=== PATIENT | female | born 1970 | race Caucasian/White ===

== ENCOUNTER 2017-05-19 13:50 | Inpatient (IN) ==
[2017-05-19 14:37] LABS: Bilirubin,Urine Negative (Negative); Blood,Urine Large (Negative); Clarity,Urine Turbid (Clear); Color,Urine Yellow (Yellow); Glucose,Urine (UA) >=1000 mg/dL (Normal); Ketones,Urine Negative (Negative); Leukocyte Esterase,Urine Large (Negative); Nitrite,Urine Positive (Negative); Protein,Urine Trace mg/dL (Neg-Trace); Specific Gravity,Urine 1.028 (1.010-1.025); Urobilinogen,Urine Normal (Normal)
[2017-05-19 14:39] LABS: Bacteria,Urine Many per hpf (None-Few); Hyaline Casts,Urine None Seen per lpf (None-Few); RBC,Urine 15-30 per hpf (0-3); Squamous Epithelial Cell,Urine Many per lpf (None-Few); WBC,Urine TNTC per hpf (0-3)
--- NOTE | 2017-05-19 14:57 | Emergency Department Note ---
Disposition Clinical Impression: CVA (cerebral vascular accident) Qualifiers: CVA mechanism: unspecified Qualified Code(s): I63.9 - Cerebral infarction, unspecified Disposition: Admitted As Inpatient Condition: Fair Referrals: Merced Mckeon MD [Primary Care Provider] - Forms: ED Satisfaction Letter Time of Disposition: 16:53 Neuro HPI - General Chief Complaint: ED Weakness Stated Complaint: Left leg/ankle unable to move Time Seen by Provider: 05/19/17 14:44 Source: patient Mode of arrival: ambulatory Limitations: no limitations Nursing Notes Reviewed: Yes Vital Signs Reviewed: Yes - History of Present Illness HPI Narrative: 46-year-old female who states she developed a left leg numbness and weakness on Thursday which is 3 days ago. She states it started about 7 AM on Thursday and she was seen at an outside facility was told she didn't have a stroke based on CT scan and sent home. Onset of Symptoms Date: 05/16/17 Onset of Symptoms Time: 07:00 Timing confirmed by: family member Location: left leg History of same: No Severity: severe Quality: weakness, numbness Symptoms Improving: No Improves with: none Worsens with: none Context: sudden onset On Anticoagulants: No Associated symptoms: Reports: denies other symptoms Treatments Prior to Arrival: none - Related Data Home Medications: Home Medications Medication Instructions Recorded Confirmed Albuterol Neb [Proventil Neb] 2.5 mg IH Q4HR 09/26/15 09/04/16 Albuterol Sulfate [Albuterol 1 puff IH DAILY 09/26/15 09/04/16 Inhaler] Lisinopril-HCTZ 10-12.5 [Prinzide 1 each PO BID 09/26/15 09/04/16 10-12.5] Metformin HCl [Glucophage] 1,000 mg PO BID 09/26/15 09/04/16 Sitagliptin Phos/Metformin HCl 1 each PO BID 09/26/15 09/04/16 [Janumet 50-1,000 mg Tablet] Previous Rx's Medication Instructions Recorded Meloxicam [Mobic] 7.5 mg PO DAILY #10 tablet 09/04/16 Allergies/Adverse Reactions: Allergies Allergy/AdvReac Type Severity Reaction Status Date / Time Penicillins [PCN] Allergy Swelling Verified 09/04/16 20:04 of Lip/Tongue/Throat All systems ED: reviewed and negative except as stated. Constitutional: Denies: fever, chills, weakness, weight change Eyes: Denies: eye pain, eye discharge, vision change ENT ED: Denies: ear pain, throat pain, dental pain, hearing loss, epistaxis, congestion, dysphagia Cardiovascular: Denies: chest pain, palpitations, dyspnea on exertion, edema, syncope Respiratory: Denies: cough, dyspnea, wheezes, hemoptysis, stridor Gastrointestinal: Denies: abdominal pain, nausea, vomiting, diarrhea, constipation, hematemesis, melena, hematochezia Genitourinary: Denies: dysuria, frequency, hematuria, discharge Musculoskeletal: Denies: back pain, neck pain, arthralgia, myalgia Integumentary: Denies: rash, abrasion, lesions Neurological: Reports: weakness. 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 - Social History Smoking Status: Former smoker Smokeless Tobacco Status: No Alcohol use: Reports: none Drug use: Reports: none Physical Exam - General Limitations: no limitations General appearance: alert, in no apparent distress - Head Head exam: atraumatic, normocephalic, normal inspection - Eye Eye exam: Present: normal appearance - ENT ENT exam: normal exam, normal oropharynx, mucous membranes moist - Neck Neck exam: Present: normal inspection, full ROM, trachea midline - Chest Chest inspection: Present: normal inspection, symmetric chest wall rise - Respiratory Respiratory exam: Present: normal lung sounds bilaterally - Cardiovascular Cardiovascular exam: Present: regular rate, normal rhythm, normal heart sounds - Abdominal Exam Abdominal exam: Present: soft, Non-Tender. Absent: tenderness, distention, guarding, rebound, rigidity - Extremities Exam Extremities exam: Present: normal inspection, full ROM. Absent: tenderness, pedal edema - Expanded Lower Extremity Exam Neurovascular/Tendon exam: Present: motor deficit, sensory deficit Gait: not tested/not observed - Back Exam Back exam: Present: normal inspection, full ROM. Absent: tenderness - Neurological Exam Neurological exam: Present: alert, oriented X3 - Psychiatric Psychiatric exam: Present: normal affect, normal mood - Skin Skin exam: Present: warm, dry, intact, normal color Course - Reevaluation(s) Reevaluation #1: Notified by nursing staff that the patient fell when she was getting into bed. She her sock slid and she slid to the floor with the assistance of her significant other. She denies injury. Evaluation no obvious injuries were noted. Time: 15:26 Reevaluation #2: 46-year-old female who had acute onset of left leg pain 7 AM 3 days ago. Patient was seen at an outside facility had a CT scan and was negative for acute findings and was sent home. Patient comes in with persistent left leg pain. CT scan does show evidence of possible stroke. Consultation obtained with neurology anticoagulation given per his instruction and patient will be admitted for further evaluation. Time: 16:53 - Consultations Consultation #1: Discussed with , recommends Plavix 7581 mg aspirin admit and stroke workup. Time: 16:52 Consultation #2: Discussed with Luis Garza, admit. Time: 16:59 Vital Signs Temperature 98.5 F 05/19/17 14:10 Pulse Rate 101 05/19/17 14:10 Respiratory Rate 16 05/19/17 14:10 Blood Pressure 136/78 05/19/17 14:10 O2 Sat by Pulse Oximetry 96 05/19/17 14:10 Temperature 98.7 F 05/19/17 14:53 Pulse Rate 90 05/19/17 16:25 Respiratory Rate 16 05/19/17 16:25 Blood Pressure 116/81 05/19/17 16:25 O2 Sat by Pulse Oximetry 92 05/19/17 16:25 Oxygen Delivery Oxygen Delivery Room Air Neuro Symptoms/Deficit - Lab Data Lab results reviewed: Yes I reviewed the patient's lab results. Result diagrams: 05/19/17 15:07 05/19/17 15:07 Lab Results 05/19/17 05/19/17 05/19/17 Range/Units 14:12 14:38 15:07 WBC 8.6 (4.3-11.1) K/mcL RBC 5.83 H (3.82-4.97) M/mcL Hgb 17.0 H (11.5-15.4) g/dL Hct 50.5 H (35.3-44.9) % MCV 86.6 (83.0-100.0) fL MCH 29.2 (28.0-33.3) pg MCHC 33.7 (31.6-35.5) g/dL RDW 13.2 (11.5-14.5) % Plt Count 167 (140-400) K/mcL MPV 11.4 (9.4-12.4) fL Immature Gran % 0.5 (0-4) % Seg Neutrophils % 60.3 % Lymphocytes % 30.5 % Monocytes % 6.4 % Eosinophils % 1.5 % Basophils % 0.8 % Neutrophils # 5.2 (1.6-8.9) K/mcL Lymphocytes # 2.6 (0.6-4.6) K/mcL Monocytes # 0.6 (0.0-1.3) K/mcL Eosinophils # 0.1 (0.0-0.6) K/mcL Basophils # 0.1 (0.0-0.2) K/mcL PT (9.4-12.1) Seconds INR APTT (26.0-36.0) Seconds Sodium (136-145) mEq/L Potassium (3.5-4.5) mEq/L Chloride (98-109) mEq/L Carbon Dioxide (19-29) mEq/L BUN (7-20) mg/dL Creatinine (0.57-1.11) mg/dL Est GFR ( Amer) (> 60) Est GFR (Non-Af Amer) (> 60) BUN/Creatinine Ratio (6-26) Glucose (70-99) mg/dL POC Glucose 268 H (58-89) Calculated Osmolality (280-300) Calcium (8.6-10.8) mg/dL Troponin I (0-0.03) ng/mL Urine Color Yellow (Yellow) Urine Clarity Turbid A (Clear) Urine pH 6.0 (5.0-8.0) pH Units Ur Specific [place] 1.028 H (1.010-1.025) Urine Protein Trace (Neg-Trace) mg/dL Urine Glucose (UA) >=1000 H (Normal) mg/dL Urine Ketones Negative (Negative) mg/dL Urine Blood Large H (Negative) Urine Nitrite Positive A (Negative) Urine Bilirubin Negative (Negative) Urine Urobilinogen Normal (Normal) mg/dL Ur Leukocyte Esterase Large H (Negative) Urine Microscopic RBC 15-30 H (0-3) per hpf Urine Microscopic WBC TNTC H (0-3) per hpf Ur Squamous Epith Cells Many H (None-Few) per lpf Urine Bacteria Many H (None-Few) per hpf Hyaline Casts None Seen (None-Few) per lpf Ur Culture Indicated? YES A (NO) 05/19/17 05/19/17 05/19/17 Range/Units 15:07 15:07 15:07 WBC (4.3-11.1) K/mcL RBC (3.82-4.97) M/mcL Hgb (11.5-15.4) g/dL Hct (35.3-44.9) % MCV (83.0-100.0) fL MCH (28.0-33.3) pg MCHC (31.6-35.5) g/dL RDW (11.5-14.5) % Plt Count (140-400) K/mcL MPV (9.4-12.4) fL Immature Gran % (0-4) % Seg Neutrophils % % Lymphocytes % % Monocytes % % Eosinophils % % Basophils % % Neutrophils # (1.6-8.9) K/mcL Lymphocytes # (0.6-4.6) K/mcL Monocytes # (0.0-1.3) K/mcL Eosinophils # (0.0-0.6) K/mcL Basophils # (0.0-0.2) K/mcL PT 12.6 H (9.4-12.1) Seconds INR 1.2 APTT 29.9 (26.0-36.0) Seconds Sodium 134 L (136-145) mEq/L Potassium 4.3 (3.5-4.5) mEq/L Chloride 98 (98-109) mEq/L Carbon Dioxide 28 (19-29) mEq/L BUN 8 (7-20) mg/dL Creatinine 0.77 (0.57-1.11) mg/dL Est GFR ( Amer) > 60 (> 60) Est GFR (Non-Af Amer) > 60 (> 60) BUN/Creatinine Ratio 10 (6-26) Glucose 285 H (70-99) mg/dL POC Glucose (58-89) Calculated Osmolality 287 (280-300) Calcium 10.5 (8.6-10.8) mg/dL Troponin I 0.01 (0-0.03) ng/mL Urine Color (Yellow) Urine Clarity (Clear) Urine pH (5.0-8.0) pH Units Ur Specific [place] (1.010-1.025) Urine Protein (Neg-Trace) mg/dL Urine Glucose (UA) (Normal) mg/dL Urine Ketones (Negative) mg/dL Urine Blood (Negative) Urine Nitrite (Negative) Urine Bilirubin (Negative) Urine Urobilinogen (Normal) mg/dL Ur Leukocyte Esterase (Negative) Urine Microscopic RBC (0-3) per hpf Urine Microscopic WBC (0-3) per hpf Ur Squamous Epith Cells (None-Few) per lpf Urine Bacteria (None-Few) per hpf Hyaline Casts (None-Few) per lpf Ur Culture Indicated? (NO) - Radiology Data Radiology results reviewed: Yes I reviewed the patient's radiology results. Chest X-Ray 05/19/17 14:12 IMPRESSION: No acute process. D/ / Hamzah Palafox MD / Hamzah Palafox MD Interpreting Provider: Hamzah Palafox MD Head CT 05/19/17 14:53 IMPRESSION: 1. Multifocal areas of low attenuation in the subcortical white matter of the frontal lobes bilaterally, right more than left. Findings may represent age-indeterminate infarctions. If there is concern for acute or subacute infarction, then further evaluation with MRI of the brain is recommended. D/ 05/19/2017 15:29:21 Poonam Graff MD / [email or web address] Interpreting Provider: Poonam Graff MD NIH Stroke Scale - Level of Consciousness LOC: Alert - LOC Questions LOC Questions: Answers both correctly - LOC Commands LOC Commands: Performs both correctly - Best Gaze Best Gaze: Normal - Visual Visual: No visual loss - Facial Palsy Facial Palsy: Normal - Motor Arms Motor Arm-Left: No drift for 10 seconds Motor Arm-Right: No drift for 10 seconds - Motor Legs Motor Leg-Left: No movement Motor Leg-Right: No drift for 5 seconds - Limb Ataxia Limb Ataxia: Absent of affected limb too weak to perform exam - Sensory Sensory: Mild to moderate loss, "not as sharp" - Best Language Best Language: No aphasia - Dysarthria Dysarthria: Normal - Extinction and Inattention Extinction and Inattention: Normal - NIHSS Total Score NIHSS Total Score: 5 TPA Checklist - Eligibilty for IV tPA 1. LKW equal to or less than 4.5 hours be before treatment: No - LKW: 3-4.5 hrs Add. Warnings/Precautions Patient/family understanding: The patient/family members have been counseled and understood the risk, benefit , and alternatives of treatment.
[2017-05-19 15:16] LABS: Basophils # 0.1 K/mcL (0.0-0.2); Basophils % 0.8 %; Eosinophils # 0.1 K/mcL (0.0-0.6); Eosinophils % 1.5 %; Hematocrit 50.5 % (35.3-44.9); Immature Granulocytes % 0.5 % (0-4); Lymphocytes # 2.6 K/mcL (0.6-4.6); Lymphocytes % 30.5 %; Mean Corpuscular HGB Conc 33.7 g/dL (31.6-35.5); Mean Corpuscular Hemoglobin 29.2 pg (28.0-33.3); Mean Corpuscular Volume 86.6 fL (83.0-100.0); Mean Platelet Volume 11.4 fL (9.4-12.4); Monocytes # 0.6 K/mcL (0.0-1.3); Monocytes % 6.4 %; Neutrophils # 5.2 K/mcL (1.6-8.9); Platelet Count 167 K/mcL (140-400); Red Blood Count 5.83 M/mcL (3.82-4.97); Red Cell Distribution Width 13.2 % (11.5-14.5); Segmented Neutrophils % 60.3 %
[2017-05-19 15:19] LABS: INR 1.2; Prothrombin Time 12.6 Seconds (9.4-12.1)
[2017-05-19 15:21] LABS: Activated Partial Thrombo Time 29.9 Seconds (26.0-36.0)
[2017-05-19 15:26] LABS: BUN/Creatinine Ratio 10 (6-26); Blood Urea Nitrogen 8 mg/dL (7-20); Calcium 10.5 mg/dL (8.6-10.8); Carbon Dioxide 28 mEq/L (19-29); Chloride 98 mEq/L (98-109); Glucose 285 mg/dL (70-99); Osmolality,Calculated 287 (280-300); Potassium 4.3 mEq/L (3.5-4.5); Sodium 134 mEq/L (136-145); eGFR For African Americans > 60 (> 60); eGFR For Non-African Americans > 60 (> 60)
[2017-05-19] MEDS ORDERED: Aspirin 81 MG TAB.CHEW PO STA (16:51)
[2017-05-19] MEDS ORDERED: D5% in Water 1,000 ML IVC PRN (22:25)
[2017-05-19] MEDS ORDERED: Dextrose Gel 15 GM PO PRN ×2 (22:25)
[2017-05-19] MEDS ORDERED: *HR* Dextrose 50 % in Water (Syg) 50 ML SYRINGE IVP PRN (22:25)
[2017-05-20] MEDS: Insulin LISPRO 300 UNITS/3 ML VIAL SQ SCH ×5 (00:07→21:15)
[2017-05-20] MEDS: Insulin DETEMIR 100 UNIT/ML X5UNITS SQ SCH ×2 (00:08→21:15)
--- NOTE | 2017-05-20 00:09 | Internal Med History&Physical ---
<Nikos Flores - Last Filed: 05/20/17 01:04> Date of Encounter: 05/20/17 Time of Encounter: 22:15 Assessment and Plan (1) CVA (cerebral vascular accident) Current visit: Yes Status: Acute Patient's symptoms of left leg weakness and numbness greater than 24 hours duration are consistent with a CVA. -CT scan of the head demonstrates the possibility of a stroke; areas suggestive of age indeterminant infarctions seen. -CTA of the head and neck. -Further evaluation with MRI without contrast. -Patient may need a carotid ultrasound in the future. -Regular assessment of patient's neurologic status. -Neurology consulted. -Echocardiogram. Qualifiers: CVA mechanism: unspecified Qualified Code(s): I63.9 - Cerebral infarction, unspecified (2) Left leg weakness Current visit: Yes Status: Acute Vision has 2/5 strength in the left lower extremity. -Patient is unable to move leg against gravity. -No movement at the ankle; Patient is able to move her left hip. -Patient does have moderate sensory loss; no loss of sharp versus dull sensation. -PTOT consult. (3) Diabetes Current visit: Yes Status: Acute Patient has a known history of diabetes mellitus. -Patient should be placed on diabetic diet. -Hemoglobin A1c. -Continue insulin. -Hold patient's home metformin until 48 hr after diagnostic imaging studies. -Monitor kidney function after testing. Qualifiers: Diabetes mellitus type: type 2 Qualified Code(s): E11.9 - Type 2 diabetes mellitus without complications; Z79.4 - [facility] (current) use of insulin; Z79.4 - [facility] (current) use of insulin; Z79.4 - dedicated intermodal truck driver (current) use of insulin; Z79.4 - [facility] (current) use of insulin (4) Hypertension Current visit: Yes Status: Acute Patient has a known history of hypertension. Patient normally takes lisinopril- HCTZ. -Resume home medications. Qualifiers: Qualified Code(s): I10 - Essential (primary) hypertension Internal Medicine - H&P: HPI Chief complaint: Left leg weakness Admitted From: Home History of present illness: Ms. Pacheco is a 46 year old female with past medical history of diabetes, hypertension, COPD, and depression who presented to the hospital with chief complaint of left leg numbness and weakness of 3 days duration. Patient states that on Thursday, at approximately 7 AM, she began to feel numbness and weakness in her left leg. She went to an outside facility, and was told that she did not have a stroke based on a CT scan later sent home. Patient denies ever having this before. Patient's symptoms have not changed in the last 3 days. The onset of patient's symptoms was very sudden. Patient states that she is unable to move her left ankle at all, and is barely able to bend her left knee. She is however, able to move her left leg at the hip. No movement against gravity, strength 2 out of 5 in the left lower extremity. Her numbness is described as a mild to moderate loss of sensation, with no loss of sharp sensation. She denies having any numbness or weakness in the left upper extremity. She has no facial droop or slurred speech. She denies any other neurologic deficits and anywhere besides her left leg. Head CT was performed in the ER, showing multifocal areas of low tension wishes and subcortical white matter of the frontal lobes bilaterally, more so on the right. She denies any sensory deficits outside of her left leg, dizziness, visual impairment, pain, or weakness outside of her left leg. Past Med Surg Social Fam HX - Past Medical History Medical history: COPD, diabetes, hypertension Psychiatric history: depression - Past Surgical History Surgical History: cholecystectomy - Social History Smoking Status: Former smoker Smokeless Tobacco Status: No Alcohol use: none Drug use: none Internal Medicine - H&P: Meds Lisinopril-HCTZ 10-12.5 [Prinzide 10-12.5] 1 each PO DAILY 09/26/15 [History] Metformin HCl [Glucophage] 1,000 mg PO BID 09/26/15 [History] Cholecalciferol (Vitamin D3) [Vitamin D] 2,000 unit PO DAILY 05/19/17 [History] Gabapentin [Neurontin] 400 mg PO QID 05/19/17 [History] Insulin Glargine,Hum.rec.anlog [Lantus Solostar] 35 unit SQ QPM 05/19/17 [ History] 3 Allergy/AdvReac Type Severity Reaction Status Date / Time Penicillins [PCN] Allergy Swelling Verified 09/04/16 20:04 of Lip/Tongue/Throat All Systems PM: A 10-system review of systems was performed and is negative for pertinent findings except as documented above in the HPI. - Constitutional Constitutional: no chills, no fever(s), no night sweats - EENT Eyes: no change in vision, no discharge, no pain, no photophobia Nose, mouth and throat: no dysphagia - Cardiovascular Cardiovascular ROS IM: no chest pain, no diaphoresis, no dyspnea, no lightheadedness, no palpitations, no syncope - Respiratory Respiratory: no cough, no dyspnea, no wheezing, no excessive phlegm production - Gastrointestinal Gastrointestinal: no abdominal pain, no nausea - Genitourinary Genitourinary: no change in urinary stream, no difficulty voiding - Musculoskeletal Musculoskeletal ROS IM: no numbness, no tingling - Integumentary Integumentary IM: no rash, no unusual bruising - Neurological Neurological ROS: focal weakness, weakness, no confusion, no convulsions, no headache(s), no loss of vision, no numbness, no paresthesias, no tingling, no tremor(s), no other visual disturbances - Psychiatric Psychiatric: no behavioral changes, no confusion, no visual hallucinations - Constitutional Vitals: Temp Pulse Resp BP Pulse Ox 98.0 F 77 16 135/72 94 05/19/17 23:09 05/19/17 23:09 05/19/17 23:09 05/19/17 23:09 05/19/17 23:09 General appearance: Present: A&O X 3, answers questions appropriately - Head Head exam: Present: atraumatic, normocephalic - Eye Eye exam: Present: PERRL, conjuntiva pink, sclera anicteric Pupils: Present: PERRL - Neck Neck exam general surgery: Present: supple, trachea midline. Absent: lymphadenopathy - Respiratory Respiratory exam: Present: CTAB. Absent: accessory muscle use, rales, rhonchi, wheezes - Cardiovascular Cardiovascular exam: Present: RRR, +S1, +S2. Absent: diastolic murmur, gallop, rubs, systolic murmur - Extremities Exam Extremities exam: Present: warm, radial pulses palpable and symmetrical. Absent : calf tenderness, cyanotic, pedal edema - Expanded Lower Extremities Exam Knee exam: Absent: full knee extension Lower Leg exam: Absent: full ROM - Neurological Exam Neurological exam: Present: CN II-XII intact, motor sensory deficit, oriented X3. Absent: no focal deficits, strengths equal and symetr throughout, pronater drift, facial droop, speech deficit Additional comments: 2/5 strength in left lower extremity - Expanded Neurological Exam Neuro motor strength exam: LLE: 2/1 (Unable to move left lower extremity against gravity.) - Skin Skin exam: Present: dry, intact Internal Med - H&P Results - Labs CBC & Chem 7: 05/19/17 15:07 05/19/17 15:07 <GilbertArthur Debbie - Last Filed: 05/20/17 05:47> Date of Encounter: 05/19/17 Assessment and Plan (1) COPD (chronic obstructive pulmonary disease) Current visit: Yes Status: Chronic stable, will do PRN nebs Qualifiers: COPD type: emphysema Emphysema type: other Qualified Code(s): J43.8 - Other emphysema Internal Medicine - H&P: HPI History of present illness: Ms. Pacheco is a 46 year old female Past Med Surg Social Fam HX - Additional Family History Additional family history: DM in both parents as well as CAD, no known history of stroke All Systems PM: A 10-system review of systems was performed and is negative for pertinent findings except as documented above in the HPI. 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 There is normal appearing flow in the right middle cerebral and anterior cerebral arteries. Right frontal lobe infarcts. The findings were sent to the Radiology Results Communication Center at 12:10 am on 05/20/2017to be communicated to a licensed caregiver. 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 There is normal appearing flow in the right middle cerebral and anterior cerebral arteries. Right frontal lobe infarcts. The findings were sent to the Radiology Results Communication Center at 12:10 am on 05/20/2017to be communicated to a licensed caregiver. D/ / Jamison Bullock MD / Jamison Bullock MD Interpreting Provider: Jamison Bullock MD - Diagnostic Studies CT scan - head Status: image reviewed by me Chest x-ray Status: image reviewed by me - Attending Attestation Correction, date of encounter was 05/19/17 and not 05/20/17 I personally interviewed and examined this patient and my medical decision- making was reviewed with the Resident Physician. I agree with the documented findings, disposition and treatment plan as described except to the extent set forth below. Pt presents with acute neuro deficit concerning for stroke and found to have findings on CT head that are concerning, will get MRI brain w/o contrast/CTA of head and neck, TTE with bubble study for PFO as well as neuro consult. Will use modified stroke protocol since she is past the first 24 hour window. Arthur Hunt MD, MPH Hospitalist
[2017-05-20] MEDS: Acetaminophen 325 MG TABLET PO PRN (04:50)
[2017-05-20] MEDS: Aspirin 81 MG TAB.CHEW PO SCH (08:24)
[2017-05-20] MEDS: Gabapentin 400 MG CAPSULE PO SCH ×4 (08:24→21:15)
[2017-05-20] MEDS: Cholecalciferol (D-3) 1,000 UNIT TABLET PO SCH (08:24)
--- NOTE | 2017-05-20 09:14 | Neurology - Consult Note ---
<Indio Woods - Last Filed: 05/20/17 15:46> Date of Encounter: 05/20/17 Time of Encounter: 08:20 Assessment and Plan (1) CVA (cerebral vascular accident) Current Visit: Yes Status: Acute Patient presented to [facility] after 2-3 days of neurologic symptoms starting with left leg weakness and advanced into right-sided numbness. Patient exam shows weakness on left side of her body as well as increased DTRs on right side. Head /neck CTA performed shows occlusion of the right internal carotid artery as well as right frontal lobe infarcts. MRI shows multiple acute and sub-acute infarcts in both cerebral hemisphere, the larger of the infarcts appear to be on the same side as her occluded carotid artery. This finding is certainly concerning for embolism as it appears she has been showered with emboli. Will obtain echocardiogram Continue patient on aspirin, Plavix, and atorvastatin Consider evaluation for any arrhythmias Patient appears stable at this time, will not start anticoagulation at this time , but will wait for further workup Recommend PT/OT Qualifiers: CVA mechanism: unspecified Qualified Code(s): I63.9 - Cerebral infarction, unspecified History of Present Illness Chief complaint: Neurologic symptoms HPI: Ms. Pacheco is a 46 year old female with prior medical history of COPD, diabetes, and hypertension who presented to [facility] due to development of neurologic symptoms. She states that on Thursday she developed some left leg weakness and had gone to [facility], after brief workup she was sent home. The following day she woke up with numbness on the right side of her body and continued left leg weakness. She denies having any difficulty with speech, facial droop, or headaches. She denies ever having a CVA prior. She states that since admission she has had some improvement is no longer feeling numbness on the right side of her body. CTAs performed the patient had/neck shows no clue to right internal carotid artery at its origin with partial reconstitution intracranially, likely representing development of collateral flow. Past Med Surg Social Fam HX - Past Medical History Medical history: COPD, diabetes, hypertension Psychiatric history: depression - Past Surgical History Surgical History: cholecystectomy - Social History Smoking Status: Former smoker Smokeless Tobacco Status: No Alcohol use: none Drug use: none Medications and Allergies Lisinopril-HCTZ 10-12.5 [Prinzide 10-12.5] 1 each PO DAILY 09/26/15 [History] Metformin HCl [Glucophage] 1,000 mg PO BID 09/26/15 [History] Cholecalciferol (Vitamin D3) [Vitamin D] 2,000 unit PO DAILY 05/19/17 [History] Gabapentin [Neurontin] 400 mg PO QID 05/19/17 [History] Insulin Glargine,Hum.rec.anlog [Lantus Solostar] 35 unit SQ QPM 05/19/17 [ History] 3 Allergy/AdvReac Type Severity Reaction Status Date / Time Penicillins [PCN] Allergy Swelling Verified 09/04/16 20:04 of Lip/Tongue/Throat Review of Systems: Gen: denies generalized weakness CV: Denies chest pain Resp: Denies shortness of breath Neuro: Denies headache, denies confusion, reports weakness in left lower extremity, denies numbness currently, reports previous right-sided numbness, denies tingling, denies vision changes Physical Examination - Vital Signs Vital Signs: Initial Vital Signs Temp Pulse Resp BP Pulse Ox 98.5 F 101 16 136/78 96 05/19/17 14:10 05/19/17 14:10 05/19/17 14:10 05/19/17 14:10 05/19/17 14:10 - Exam Exam: General: Cooperative, pleasant, no acute distress, alert and oriented 3, answers questions appropriately HEENT: Normocephalic, atraumatic, neck supple, trachea midline, Conjunctiva pink , sclera anicteric, EOMI, PERRL, oral mucosa moist, no orophargeal erythema or exudates Extremities: No calf tenderness, noncyanotic, no pedal edema appreciated, warm, lower extremity pulses palpable and symmetrical Neurological: Alert and oriented 3, no facial droop, no focal deficits, cranial nerves II through XII grossly intact bilaterally, finger to nose smooth and accurate, sensation to gross touch intact in upper and lower extremities bilaterally, strength 5/5 in upper extremities bilaterally, patient unable to dorsiflex toes in left foot, strength 4/5 in leg raising and left lower extremity, brisk DTRs noted in right lower extremity, normal DTR and left lower extremity and upper extremities Skin: Dry, intact, normal color Results - Laboratory Findings CBC and BMP: 05/19/17 15:07 05/19/17 15:07 Abnormal lab findings: Abnormal lab results RBC 5.83 M/mcL (3.82-4.97) H 05/19/17 15:07 Hgb 17.0 g/dL (11.5-15.4) H 05/19/17 15:07 Hct 50.5 % (35.3-44.9) H 05/19/17 15:07 PT 12.6 Seconds (9.4-12.1) H 05/19/17 15:07 Sodium 134 mEq/L (136-145) L 05/19/17 15:07 Glucose 285 mg/dL (70-99) H 05/19/17 15:07 POC Glucose 299 (58-89) H 05/19/17 20:25 Urine Clarity Turbid (Clear) A 05/19/17 14:12 Ur Specific Preston 1.028 (1.010-1.025) H 05/19/17 14:12 Urine Glucose (UA) >=1000 mg/dL (Normal) H 05/19/17 14:12 Urine Blood Large (Negative) H 05/19/17 14:12 Urine Nitrite Positive (Negative) A 05/19/17 14:12 Ur Leukocyte Esterase Large (Negative) H 05/19/17 14:12 Urine Microscopic RBC 15-30 per hpf (0-3) H 05/19/17 14:12 Urine Microscopic WBC TNTC per hpf (0-3) H 05/19/17 14:12 Ur Squamous Epith Cells Many per lpf (None-Few) H 05/19/17 14:12 Urine Bacteria Many per hpf (None-Few) H 05/19/17 14:12 Ur Culture Indicated? YES (NO) A 05/19/17 14:12 Consult Discharge Plan - Plan Referrals: Merced Mckeon MD [Primary Care Provider] - <Wilman Velázquez I - Last Filed: 05/20/17 17:03> Date of Encounter: 05/20/17 Assessment and Plan (1) CVA (cerebral vascular accident) Current Visit: Yes Status: Acute Patient was Seen and examined agreed with Dr. Woods documentation. Her presentation seems to be consistent with multiple subacute infarct. Likely been having in the last week or so her left lower activity weakness along with numbness and paresthesias of the right side seems to be consistent with these multiple embolic infarct that was noted on the CT the scan as well as on the MRI of her brain. CT angiogram also shows occlusion of the right carotid artery along with collaterals which is likely chronic in nature. Patient has multiple risk factors for stroke and certainly with carotid stenosis status at major risk factor regardless at this time. We will need to look for an embolic source. As her carotid is completely occluded she would not require any surgical intervention especially when they are evidence of collaterals. She will need an echocardiogram particularly to look for embolic source from the heart or perhaps she may need a BRIAN. At the same time the need to continue monitoring her for any atrial fibrillation at the moment no evidence of any A. fib but is desiccation might need to be anticoagulated. The to control her blood pressure and blood sugar and keep it is stable certainly we need to allow systolic blood pressure to be 140 and 170 range as decreasing the pressure too quick may cause worsening of her symptoms Currently she is on aspirin and Plavix along with the Lipitor suggested that we should continue. She will require rehabilitation as well. We will follow the patient with you Wilman Velázquez MD Qualifiers: CVA mechanism: unspecified Qualified Code(s): I63.9 - Cerebral infarction, unspecified History of Present Illness HPI: Ms. Pacheco is a 46 year old female All Systems: A 10-system review of systems was performed and is negative for pertinent findings except as documented above in the HPI. Physical Examination - Vital Signs Vital Signs: Initial Vital Signs Temp Pulse Resp BP Pulse Ox 98.5 F 101 16 136/78 96 05/19/17 14:10 05/19/17 14:10 05/19/17 14:10 05/19/17 14:10 05/19/17 14:10 Results - Laboratory Findings CBC and BMP: 05/19/17 15:07 05/19/17 15:07 Abnormal lab findings: Abnormal lab results RBC 5.83 M/mcL (3.82-4.97) H 05/19/17 15:07 Hgb 17.0 g/dL (11.5-15.4) H 05/19/17 15:07 Hct 50.5 % (35.3-44.9) H 05/19/17 15:07 PT 12.6 Seconds (9.4-12.1) H 05/19/17 15:07 Sodium 134 mEq/L (136-145) L 05/19/17 15:07 Glucose 285 mg/dL (70-99) H 05/19/17 15:07 POC Glucose 299 (58-89) H 05/19/17 20:25 Urine Clarity Turbid (Clear) A 05/19/17 14:12 Ur Specific Preston 1.028 (1.010-1.025) H 05/19/17 14:12 Urine Glucose (UA) >=1000 mg/dL (Normal) H 05/19/17 14:12 Urine Blood Large (Negative) H 05/19/17 14:12 Urine Nitrite Positive (Negative) A 05/19/17 14:12 Ur Leukocyte Esterase Large (Negative) H 05/19/17 14:12 Urine Microscopic RBC 15-30 per hpf (0-3) H 05/19/17 14:12 Urine Microscopic WBC TNTC per hpf (0-3) H 05/19/17 14:12 Ur Squamous Epith Cells Many per lpf (None-Few) H 05/19/17 14:12 Urine Bacteria Many per hpf (None-Few) H 05/19/17 14:12 Ur Culture Indicated? YES (NO) A 05/19/17 14:12
--- NOTE | 2017-05-20 16:29 | Internal Med Progress Note ---
Date of Encounter: 05/20/17 Time of Encounter: 16:26 - Assessment and plan (1) CVA (cerebral vascular accident) Current Visit: Yes Status: Acute Assessment and plan: Nevin Pacheco is 46-year-old female with past medical history COPD, diabetes and hypertension who presented to [facility] on 05/19/2017 with complaints of left arm numbness and tingling and inability to move left leg. She was found to have an acute CVA and was admitted for further workup and treatment. 1. CVA: presented with left arm numbness/tingling and inability to move left leg. Symptom onset was 3 days prior to admission. ASA given in ED. Head CT negative. Brain MRI with multiple areas of acute infarct in the frontal, parietal and occipital lobes bilaterally, concerning for an embolic source. Head /neck CTA with complete occlusion of Right ICA. No A. fib or arrhythmia noted on telemetry review. Cont ASA, plavix, statin. TTE pending. Neurology following. Cardiology consulted. Discussed with Dr. Velázquez and will need heparin drip if she goes into A. fib. 2. UTI: UA indicative of UTI. Allergy to penicillin. Start IV Cipro. Urine culture pending 3. HTN: per hx. BP controlled. No need for permissive hypertension as symptoms onset was 3 days prior to presentation. Continue home BP medications. Monitor BP and titrate PRN 4. Diabetes: per hx. control unknown. Holding home oral hypoglycemics. SSI. Monitor blood sugar and titrate PRN. Hgb A1c pending 5. COPD: per hx. with scant, scattered wheezing on 05/20 exam. Afebrile, no elevated white count, no increase in sputum production. No indication for respiratory ATB. Add duo nebs. 6. DVT prophylaxis: Heparin Qualifiers: CVA mechanism: unspecified Qualified Code(s): I63.9 - Cerebral infarction, unspecified (2) Abnormal urinalysis Current Visit: Yes Status: Acute (3) COPD (chronic obstructive pulmonary disease) Current Visit: Yes Status: Chronic Qualifiers: COPD type: emphysema Emphysema type: other Qualified Code(s): J43.8 - Other emphysema (4) Diabetes Current Visit: Yes Status: Acute Qualifiers: Diabetes mellitus type: type 2 Qualified Code(s): E11.9 - Type 2 diabetes mellitus without complications (5) DVT prophylaxis Current Visit: Yes Status: Acute (6) Hypertension Current Visit: Yes Status: Acute Qualifiers: Hypertension type: essential hypertension Qualified Code(s): I10 - Essential (primary) hypertension - Subjective Interval history: Seen and examined at bedside, patient is new to me. Information obtained from chart review and patient report. Agents that she is feeling a little better, still with some left arm numbness and tingling. She is now able to move her left leg a little bit. No previous history of CVA. Denies headache, no vision changes. No chest pain, no shortness of breath, no abdominal pain and nausea vomiting or diarrhea. - Constitutional Vitals: Temp Pulse Resp BP Pulse Ox 98.0 F 71 16 135/79 91 05/20/17 15:15 05/20/17 15:15 05/20/17 15:15 05/20/17 15:15 05/20/17 15:15 General appearance: Present: A&O X 3, answers questions appropriately - Head Head exam: Present: atraumatic, normocephalic - Eye Eye exam: Present: PERRL, conjuntiva pink, sclera anicteric Pupils: Present: PERRL - Neck Neck exam general surgery: Present: supple, trachea midline. Absent: lymphadenopathy - Respiratory Respiratory exam: Present: CTAB. Absent: accessory muscle use, rales, rhonchi, wheezes - Cardiovascular Cardiovascular exam: Present: RRR, +S1, +S2. Absent: diastolic murmur, gallop, rubs, systolic murmur - GI/Abdominal GI/Abdominal exam: Present: normal bowel sounds, soft, no peritoneal signs. Absent: distended, tenderness - Extremities Exam Extremities exam: Present: warm, radial pulses palpable and symmetrical. Absent : calf tenderness, cyanotic, pedal edema - Neurological Exam Neurological exam: Present: CN II-XII intact, oriented X3, no focal deficits. Absent: pronater drift, facial droop, speech deficit Additional comments: 0/5 strength to left leg. 5 out of 5 strength to all other extremities. No slurred speech, no facial droop. - Skin Skin exam: Present: dry, intact Internal Medicine: Result - Labs CBC & Chem 7: 05/19/17 15:07 05/19/17 15:07 - ABG Interpretation ABG results: PT/INR, D-dimer PT 12.6 Seconds (9.4-12.1) H 05/19/17 15:07 Consult Discharge Plan - Plan Referrals: Merced Mckeon MD [Primary Care Provider] -
[2017-05-20] MEDS: Ipratropium/Albuterol Neb 3 ML IH SCH ×2 (19:45→23:02)
--- NOTE | 2017-05-20 20:12 | Electrocardiograph Report ---
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
[2017-05-21] MEDS: Ipratropium/Albuterol Neb 3 ML IH SCH ×6 (03:11→23:02)
[2017-05-21 05:35] LABS: Hematocrit 47.6 % (35.3-44.9); Hemoglobin 15.8 g/dL (11.5-15.4); Mean Corpuscular HGB Conc 33.2 g/dL (31.6-35.5); Mean Corpuscular Hemoglobin 28.9 pg (28.0-33.3); Mean Platelet Volume 11.5 fL (9.4-12.4); Platelet Count 150 K/mcL (140-400); Red Blood Count 5.47 M/mcL (3.82-4.97); Red Cell Distribution Width 13.2 % (11.5-14.5)
[2017-05-21 05:55] LABS: Alanine Aminotransferase 58 Units/L (0-55); Albumin 3.3 g/dL (3.5-5.0); Albumin/Globulin Ratio 0.9 (1.1-2.2); Alkaline Phosphatase 59 Units/L (38-126); Aspartate Amino Transferase 50 Units/L (5-34); BUN/Creatinine Ratio 17 (6-26); Blood Urea Nitrogen 12 mg/dL (7-20); Calcium 9.6 mg/dL (8.6-10.8); Carbon Dioxide 28 mEq/L (19-29); Chloride 101 mEq/L (98-109); Chol/HDL Ratio 6.1 (0-4.9); Cholesterol 189 mg/dL (< 200); Globulin 3.7 g/dL (2.4-3.5); Glucose 193 mg/dL (70-99); HDL Cholesterol 31 mg/dL (40-59); LDL Cholesterol,Calculated 126 mg/dL (0-99); Osmolality,Calculated 291 (280-300); Potassium 3.9 mEq/L (3.5-4.5); Sodium 138 mEq/L (136-145); Triglycerides 158 mg/dL (< 150); eGFR For African Americans > 60 (> 60); eGFR For Non-African Americans > 60 (> 60)
[2017-05-21] MEDS: Insulin LISPRO 300 UNITS/3 ML VIAL SQ SCH ×4 (08:30→21:23)
[2017-05-21] MEDS: Aspirin 81 MG TAB.CHEW PO SCH (08:31)
[2017-05-21] MEDS: Cholecalciferol (D-3) 1,000 UNIT TABLET PO SCH (08:31)
[2017-05-21] MEDS: Gabapentin 400 MG CAPSULE PO SCH ×4 (08:31→21:22)
--- NOTE | 2017-05-21 09:59 | Cardiology Consult Note ---
<Jacob Martin - Last Filed: 05/21/17 11:26> Date of Encounter: 05/21/17 Time of Encounter: 11:27 Assessment and Plan (1) CVA (cerebral vascular accident) Current Visit: Yes Status: Acute MRI demonstrates multiple infarcts in the occipital, parietal, and frontal lobes. Likely embolic. Neurology following. MRA of the neck showed 100% occlusion of the right ICA. Noted to have larger infarct on right per neurology although CVA are bilateral. Telemetry review shows NSR to ST. No concerning arrhythmias seen. TTE shows preserved EF. No PFO. No thrombus. BRIAN recommended for further evaluation for embolic source. Risk, benefit, and indication discussed. She is considering. If BRIAN is negative a loop recorder is recommended to assess for atrial fibrillation. NPO after midnight for BRIAN. Started on asa and plavix. No indication seen for full anticoagulation at this time. Qualifiers: CVA mechanism: unspecified Qualified Code(s): I63.9 - Cerebral infarction, unspecified Discussion w patient/family: The assessment and plan as outlined above was discussed with the patient and/or family members who expressed understanding and agreement. All questions were answered. Thank you for involving us in the care of your patient. Please call with any questions. History of Present Illness Consult date: 05/21/17 Requesting physician: Arthur Hunt Consult reason: embolic CVA Chief complaint: Bilateral extremity weakness History of present illness: Ms. Pacheco is a 46 year old female with a history of DM, HTN, HLD, and tobacco use who presented with weakness in LLE and numbness in her RLE since last thursday. She is diagnosed with multiple cerebral infarcts on MRI. Cardiology consulted for evaluation of possible embolic source. She continues to have left sided weakness. She voices fear of falling due to weakness. She was given a walker and asked to only ambulate with assistance. Denies previous history of CVA. She denies chest pain or SOB. Admits to occasional palpitations that occur with panic attacks. Past Med Surg Social Fam HX - Past Medical History Medical history: COPD, diabetes, hyperlipidemia, hypertension Psychiatric history: depression - Past Surgical History Surgical History: cholecystectomy - Social History Smoking Status: Former smoker Smokeless Tobacco Status: No Alcohol use: none Drug use: none Medications and Allergies Lisinopril-HCTZ 10-12.5 [Prinzide 10-12.5] 1 each PO DAILY 09/26/15 [History] Metformin HCl [Glucophage] 1,000 mg PO BID 09/26/15 [History] Cholecalciferol (Vitamin D3) [Vitamin D] 2,000 unit PO DAILY 05/19/17 [History] Gabapentin [Neurontin] 400 mg PO QID 05/19/17 [History] Insulin Glargine,Hum.rec.anlog [Lantus Solostar] 35 unit SQ QPM 05/19/17 [ History] 3 Allergy/AdvReac Type Severity Reaction Status Date / Time Penicillins [PCN] Allergy Swelling Verified 09/04/16 20:04 of Lip/Tongue/Throat All Systems Review: A 10-system review of systems was performed and is negative for pertinent findings except as documented above in the HPI. Physical Examination Vital Signs, Last 4 Hours Temp Pulse Resp BP Pulse Ox 05/21/17 07:49 16 95 05/21/17 07:00 97.5 F L 73 16 127/87 95 General: Conversant, No Apparent Distress HEENT: Atraumatic, Normocephaly, Mucus Membranes Moist Neck: No JVD, Normal carotid pulses Cardiac: Reg Rate and Rhythm, Normal S1 and S2, No Murmur Lungs: Normal Breath Sounds, No Wheeze, Rales, Rhonchi Neuro: Alert and responsive, Other (Left sided weakness noted. ) Abdomen: Soft, Non-Tender Skin: No rashes noted on visualized skin Musculoskeletal: No Chest Wall Tenderness Extremities: No Clubbing, No Cyanosis, No Edema, Normal Pulses Results 05/21/17 04:24 05/21/17 04:24 Lab Results 05/21/17 05/21/17 04:24 04:24 WBC 7.3 Hgb 15.8 H Hct 47.6 H Plt Count 150 Sodium 138 Potassium 3.9 Chloride 101 Carbon Dioxide 28 BUN 12 Creatinine 0.69 Glucose 193 H Calcium 9.6 Total Bilirubin 1.0 AST 50 H ALT 58 H Alkaline Phosphatase 59 Chest X-Ray 05/19/17 14:12 IMPRESSION: No acute process. D/ / Hamzah Palafox MD / Hamzah Palafox MD Interpreting Provider: Hamzah Palafox MD Head CT 05/19/17 14:53 IMPRESSION: 1. Multifocal areas of low attenuation in the subcortical white matter of the frontal lobes bilaterally, right more than left. Findings may represent age-indeterminate infarctions. If there is concern for acute or subacute infarction, then further evaluation with MRI of the brain is recommended. D/ / 05/19/2017 15:29:21 Poonam Graff MD / [email or web address] Interpreting Provider: Poonam Graff MD Head CTA 05/19/17 22:22 IMPRESSION: Occluded right internal carotid artery at its origin and throughout its course in the neck with partial reconstitution intracranially likely from collateral retrograde flow from point hope ira Dickinson. There is normal appearing flow in the right middle cerebral and anterior cerebral arteries. Right frontal lobe infarcts. The findings were sent to the Radiology Results Communication Center at 12:10 am on 05/20/2017to be communicated to a licensed caregiver. D/ / Jamison Bullock MD / Jmaison Bullock MD Interpreting Provider: Jamison Bullock MD Neck CTA 05/19/17 22:22 IMPRESSION: Occluded right internal carotid artery at its origin and throughout its course in the neck with partial reconstitution intracranially likely from collateral retrograde flow from point hope ira [place]. There is normal appearing flow in the right middle cerebral and anterior cerebral arteries. Right frontal lobe infarcts. The findings were sent to the Radiology Results Communication Center at 12:10 am on 05/20/2017to be communicated to a licensed caregiver. D/ / Jamison Bullock MD / Jamison Bullock MD Interpreting Provider: Jamison Bullokc MD Brain MRI 05/20/17 09:16 IMPRESSION: Multiple areas of acute infarct involving the frontal lobes, parietal lobes, and occipital lobes bilaterally, involving multiple vascular territories. An embolic source should be considered. Mild chronic small vessel ischemic changes. There is mild enhancement in the posterior right frontal lesions, which suggests subacute areas of infarct. A follow-up MRI of the brain should be considered in 6-8 weeks. D/ / 05/20/2017 13:00:06 Griselda Butt MD / sadiq Interpreting Provider: Griselda Butt MD Echocardiogram 05/20/17 22:24 Impressions: Normal LV systolic function, LVEF 65-70%. Normal right ventricular size and function. No significant valvular dysfunction. No evidence of patent foramen ovale (PFO) with agitated saline contrast. - Imaging and Cardiology Echo: report reviewed - EKG Interpretation EKG results cardiology: personally reviewed Consult Discharge Plan - Plan Referrals: Merced Mckeon MD [Primary Care Provider] - <Alexis Pavon - Last Filed: 05/21/17 12:07> Date of Encounter: 05/21/17 - Attending Attestation I have personally performed a face to face evaluation on this patient. I have reviewed and agree with the care plan. History and Exam by me shows: MRI c/w CVA in multiple territories. Recommend workup for embolic source including BRIAN and LOOP recorder. Assessment and Plan Discussion w patient/family: The assessment and plan as outlined above was discussed with the patient and/or family members who expressed understanding and agreement. All questions were answered. Thank you for involving us in the care of your patient. Please call with any questions. History of Present Illness History of present illness: Ms. Pacheco is a 46 year old female All Systems Review: A 10-system review of systems was performed and is negative for pertinent findings except as documented above in the HPI. Physical Examination Vital Signs, Last 4 Hours Temp Pulse Resp BP Pulse Ox 05/21/17 11:00 98.1 F 84 16 123/80 94 Results 05/21/17 04:24 05/21/17 04:24 Lab Results 05/21/17 05/21/17 04:24 04:24 WBC 7.3 Hgb 15.8 H Hct 47.6 H Plt Count 150 Sodium 138 Potassium 3.9 Chloride 101 Carbon Dioxide 28 BUN 12 Creatinine 0.69 Glucose 193 H Calcium 9.6 Total Bilirubin 1.0 AST 50 H ALT 58 H Alkaline Phosphatase 59
--- NOTE | 2017-05-21 10:11 | Neurology Progress Note ---
<Indio Woods - Last Filed: 05/21/17 10:18> Date of Encounter: 05/21/17 Time of Encounter: 08:15 Assessment and Plan (1) CVA (cerebral vascular accident) Current Visit: Yes Status: Acute Patient presented to [place] after 2-3 days of neurologic symptoms starting with left leg weakness and advanced into right-sided numbness. Patient exam shows weakness on left side of her body as well as increased DTRs on right side. Head /neck CTA performed shows occlusion of the right internal carotid artery as well as right frontal lobe infarcts. No intracranial vascular abnormalities seen in CTA of the patient head. MRI shows multiple acute and sub-acute infarcts in both cerebral hemisphere, the larger of the infarcts appear to be on the same side as her occluded carotid artery. The larger of the infarcts pain on the side of her occluded carotid. This finding is certainly concerning for embolism as it appears she has been showered with emboli. Mild improvement patient strength seen since yesterday, so reports continued weakness. Initial TTE negative for acute findings Consider BRIAN for better visualization Continue patient on aspirin, Plavix, and atorvastatin Consider evaluation for any arrhythmias Patient appears stable at this time, will not start anticoagulation unless evidence of atrial fibrillation or thrombus seen Recommend PT/OT Qualifiers: CVA mechanism: unspecified Qualified Code(s): I63.9 - Cerebral infarction, unspecified Subjective Principal diagnosis: CVA Interval history: Patient seen and examined this morning she is sitting comfortably having just eaten breakfast on the phone. She states she has had some improvement in her strength, although still reports continued weakness. Objective - Constitutional Vitals: Temp Pulse Resp BP Pulse Ox 97.5 F L 73 16 127/87 95 05/21/17 07:00 05/21/17 07:00 05/21/17 07:49 05/21/17 07:00 05/21/17 07:49 General appearance: Present: A&O X 3, no acute distress, answers questions appropriately - Head Head exam: Present: atraumatic, normocephalic - Eye Eye exam: Present: conjuntiva pink, sclera anicteric - Extremities Exam Extremities exam: Present: warm, radial pulses palpable and symmetrical. Absent : calf tenderness, pedal edema - Neurological Exam Sensorimotor examination: Present: intact Motor examination - right side: 5/5: deltoids, biceps, triceps, wrist flexion, movement assembly final inspector, quadriceps, toe extension (EHL), plantarflexion Motor examination - left side: 4/5: hip flexors, quadriceps, tibialis Anterior, toe extension (EHL), plantarflexion, 5/5: deltoids, biceps, triceps, movement assembly final inspector Sensation intact: Present: intact Mental Status Examination: Present: awake, alert, oriented to person, oriented to place, oriented to time, follows commands appropriately, answers questions appropriately Cranial nerve examination: Present: no facial asymmetry is present, no dysarthria Results - Laboratory Findings CBC and BMP: 05/21/17 04:24 05/21/17 04:24 Abnormal lab findings: Abnormal lab results RBC 5.47 M/mcL (3.82-4.97) H 05/21/17 04:24 Hgb 15.8 g/dL (11.5-15.4) H 05/21/17 04:24 Hct 47.6 % (35.3-44.9) H 05/21/17 04:24 PT 12.6 Seconds (9.4-12.1) H 05/19/17 15:07 Glucose 193 mg/dL (70-99) H 05/21/17 04:24 POC Glucose 278 (58-89) H 05/20/17 21:03 Hemoglobin A1c 10.0 % (-5.6) H 05/20/17 06:42 AST 50 Units/L (5-34) H 05/21/17 04:24 ALT 58 Units/L (0-55) H 05/21/17 04:24 Albumin 3.3 g/dL (3.5-5.0) L 05/21/17 04:24 Globulin 3.7 g/dL (2.4-3.5) H 05/21/17 04:24 Albumin/Globulin Ratio 0.9 (1.1-2.2) L 05/21/17 04:24 Triglycerides 158 mg/dL (< 150) H 05/21/17 04:24 LDL Cholesterol, Calc 126 mg/dL (0-99) H 05/21/17 04:24 VLDL Cholesterol, Calc 32 mg/dL (< 31) H 05/21/17 04:24 HDL Cholesterol 31 mg/dL (40-59) L 05/21/17 04:24 Cholesterol/HDL Ratio 6.1 (0-4.9) H 05/21/17 04:24 Urine Clarity Turbid (Clear) A 05/19/17 14:12 Ur Specific [place] 1.028 (1.010-1.025) H 05/19/17 14:12 Urine Glucose (UA) >=1000 mg/dL (Normal) H 05/19/17 14:12 Urine Blood Large (Negative) H 05/19/17 14:12 Urine Nitrite Positive (Negative) A 05/19/17 14:12 Ur Leukocyte Esterase Large (Negative) H 05/19/17 14:12 Urine Microscopic RBC 15-30 per hpf (0-3) H 05/19/17 14:12 Urine Microscopic WBC TNTC per hpf (0-3) H 05/19/17 14:12 Ur Squamous Epith Cells Many per lpf (None-Few) H 05/19/17 14:12 Urine Bacteria Many per hpf (None-Few) H 05/19/17 14:12 Ur Culture Indicated? YES (NO) A 05/19/17 14:12 Consult Discharge Plan - Plan Referrals: Merced Mckeon MD [Primary Care Provider] - <Wilman Velázquez I - Last Filed: 05/21/17 16:36> Date of Encounter: 05/21/17 Assessment and Plan (1) CVA (cerebral vascular accident) Current Visit: Yes Status: Acute Pt seen and examined agree with Dr Woods documentations. Clinically she is quite stable in fact her left lower extremity weakness seems to improve since yesterday paresthesias are still present but not as prominent overall no new focal deficit on her neurological examination. Echocardiogram was negative for any embolic source. She continued to be on aspirin and Plavix as well as a statin. As she had a multiple infarct in both anterior circulation but predominantly in the right hemisphere, that could be from her higher carotid stenosis as is already being occluded with collaterals I do not think that she would require any surgical intervention but certainly we need to look for embolic source most likely is from the heart or from the arch of the aorta. At the same time need to be monitored for any arrhythmias strongly suggest to get a BRINA. In addition same time continue to monitor for any arrhythmias and if if there is any sign of that admission need to be anticoagulated,will follow cardiac recommendation and follow the patient with you. Wilman Velázquez MD Qualifiers: CVA mechanism: unspecified Qualified Code(s): I63.9 - Cerebral infarction, unspecified Objective - Constitutional Vitals: Temp Pulse Resp BP Pulse Ox 97.8 F 97 16 113/65 94 05/21/17 15:00 05/21/17 15:00 05/21/17 15:15 05/21/17 15:00 05/21/17 15:15 Results - Laboratory Findings CBC and BMP: 05/21/17 04:24 05/21/17 04:24 Abnormal lab findings: Abnormal lab results RBC 5.47 M/mcL (3.82-4.97) H 05/21/17 04:24 Hgb 15.8 g/dL (11.5-15.4) H 05/21/17 04:24 Hct 47.6 % (35.3-44.9) H 05/21/17 04:24 PT 12.6 Seconds (9.4-12.1) H 05/19/17 15:07 Glucose 193 mg/dL (70-99) H 05/21/17 04:24 POC Glucose 278 (58-89) H 05/20/17 21:03 Hemoglobin A1c 10.0 % (-5.6) H 05/20/17 06:42 AST 50 Units/L (5-34) H 05/21/17 04:24 ALT 58 Units/L (0-55) H 05/21/17 04:24 Albumin 3.3 g/dL (3.5-5.0) L 05/21/17 04:24 Globulin 3.7 g/dL (2.4-3.5) H 05/21/17 04:24 Albumin/Globulin Ratio 0.9 (1.1-2.2) L 05/21/17 04:24 Triglycerides 158 mg/dL (< 150) H 05/21/17 04:24 LDL Cholesterol, Calc 126 mg/dL (0-99) H 05/21/17 04:24 VLDL Cholesterol, Calc 32 mg/dL (< 31) H 05/21/17 04:24 HDL Cholesterol 31 mg/dL (40-59) L 05/21/17 04:24 Cholesterol/HDL Ratio 6.1 (0-4.9) H 05/21/17 04:24 Urine Clarity Turbid (Clear) A 05/19/17 14:12 Ur Specific [place] 1.028 (1.010-1.025) H 05/19/17 14:12 Urine Glucose (UA) >=1000 mg/dL (Normal) H 05/19/17 14:12 Urine Blood Large (Negative) H 05/19/17 14:12 Urine Nitrite Positive (Negative) A 05/19/17 14:12 Ur Leukocyte Esterase Large (Negative) H 05/19/17 14:12 Urine Microscopic RBC 15-30 per hpf (0-3) H 05/19/17 14:12 Urine Microscopic WBC TNTC per hpf (0-3) H 05/19/17 14:12 Ur Squamous Epith Cells Many per lpf (None-Few) H 05/19/17 14:12 Urine Bacteria Many per hpf (None-Few) H 05/19/17 14:12 Ur Culture Indicated? YES (NO) A 05/19/17 14:12
--- NOTE | 2017-05-21 16:38 | Internal Med Progress Note ---
Date of Encounter: 05/21/17 Time of Encounter: 16:36 - Assessment and plan (1) CVA (cerebral vascular accident) Current Visit: Yes Status: Acute Assessment and plan: Nevin Pacheco is 46-year-old female with past medical history COPD, diabetes and hypertension who presented to [facility] on 05/19/2017 with complaints of left arm numbness and tingling and inability to move left leg. She was found to have an acute CVA and was admitted for further workup and treatment. 1. CVA: presented with left arm numbness/tingling and inability to move left leg. Symptom onset was 3 days prior to admission. ASA given in ED. Head CT negative. Brain MRI with multiple areas of acute infarct in the frontal, parietal and occipital lobes bilaterally, concerning for an embolic source. Head /neck CTA with complete occlusion of Right ICA. TTE with EF 65%, no PFO or cardiac source of emboli. No A. fib or arrhythmia noted on telemetry review. Cont ASA, plavix, statin. Neurology and Cardiology following. Nothing by mouth midnight, BRIAN in the morning. May need loop before discharge. 2. UTI: UA indicative of UTI. Allergy to penicillin. Start IV Cipro. Urine culture grossly mixed and unable to be interpreted. Asymptomatic, stop Cipro and repeat urine culture 3. HTN: per hx. BP controlled. No need for permissive hypertension as symptoms onset was 3 days prior to presentation. Continue home BP medications. Monitor BP and titrate PRN 4. Diabetes: per hx. uncontrolled, Hgb 10%. Holding home oral hypoglycemics. Continue home long-acting insulin. Increase to high dose SSI. Monitor blood sugar and titrate PRN. 5. COPD: per hx. with scant, scattered wheezing on 05/20 exam. Afebrile, no elevated white count, no increase in sputum production. No indication for respiratory ATB. Add duo nebs. 6. DVT prophylaxis: Heparin Qualifiers: Qualified Code(s): I63.9 - Cerebral infarction, unspecified (2) Abnormal urinalysis Current Visit: Yes Status: Acute (3) COPD (chronic obstructive pulmonary disease) Current Visit: Yes Status: Chronic Qualifiers: Qualified Code(s): J43.8 - Other emphysema (4) Diabetes Current Visit: Yes Status: Acute Qualifiers: Qualified Code(s): E11.9 - Type 2 diabetes mellitus without complications (5) DVT prophylaxis Current Visit: Yes Status: Acute (6) Hypertension Current Visit: Yes Status: Acute Qualifiers: Qualified Code(s): I10 - Essential (primary) hypertension - Subjective Interval history: Seen and examined at bedside; says she feels better. She feels strength to her left leg is improving. Denies numbness or tingling. No blurred or double vision She still agreeable to BRIAN in the morning. She is aware of plan for SNF at discharge. - Constitutional Vitals: Temp Pulse Resp BP Pulse Ox 97.8 F 97 16 113/65 94 05/21/17 15:00 05/21/17 15:00 05/21/17 15:15 05/21/17 15:00 05/21/17 15:15 General appearance: Present: A&O X 3, answers questions appropriately - Head Head exam: Present: atraumatic, normocephalic - Eye Eye exam: Present: PERRL, conjuntiva pink, sclera anicteric Pupils: Present: PERRL - Neck Neck exam general surgery: Present: supple, trachea midline. Absent: lymphadenopathy - Respiratory Respiratory exam: Present: CTAB. Absent: accessory muscle use, rales, rhonchi, wheezes - Cardiovascular Cardiovascular exam: Present: RRR, +S1, +S2. Absent: diastolic murmur, gallop, rubs, systolic murmur - GI/Abdominal GI/Abdominal exam: Present: normal bowel sounds, soft, no peritoneal signs. Absent: distended, tenderness - Extremities Exam Extremities exam: Present: warm, radial pulses palpable and symmetrical. Absent : calf tenderness, cyanotic, pedal edema Additional comments: left leg weakness - Neurological Exam Neurological exam: Present: CN II-XII intact, oriented X3, no focal deficits. Absent: pronater drift, facial droop, speech deficit - Skin Skin exam: Present: dry, intact Internal Medicine: Result - Labs CBC & Chem 7: 05/21/17 04:24 05/21/17 04:24 Labs: Short CBC 05/21/17 Range/Units 04:24 WBC 7.3 (4.3-11.1) K/mcL Hgb 15.8 H (11.5-15.4) g/dL Hct 47.6 H (35.3-44.9) % Plt Count 150 (140-400) K/mcL BMP 05/21/17 04:24 Sodium 138 Potassium 3.9 Chloride 101 Carbon Dioxide 28 BUN 12 Creatinine 0.69 Glucose 193 H Calcium 9.6 Liver Function 05/21/17 Range/Units 04:24 Total Bilirubin 1.0 (0.2-1.2) mg/dL AST 50 H (5-34) Units/L ALT 58 H (0-55) Units/L Alkaline Phosphatase 59 (38-126) Units/L Albumin 3.3 L (3.5-5.0) g/dL - ABG Interpretation ABG results: PT/INR, D-dimer PT 12.6 Seconds (9.4-12.1) H 05/19/17 15:07 - Impressions Impressions Echocardiogram 05/20/17 22:24 Impressions: Normal LV systolic function, LVEF 65-70%. Normal right ventricular size and function. No significant valvular dysfunction. No evidence of patent foramen ovale (PFO) with agitated saline contrast. Left Ventricular Wall Motion: Rest Echo Findings All wall segments showed normal motion. Findings: Study Quality * Suboptimal echo windows. ECG Findings * Normal sinus rhythm. Left Ventricle * Normal LV systolic function, LVEF 65-70%. * Normal LV chamber size and wall thickness. * Indeterminate diastolic function. Right Ventricle * Normal right ventricular size and function. Left Atrium * Normal left atrial size. Right Atrium * Normal right atrial size. Interatrial Septum * No evidence of patent foramen ovale (PFO) with agitated saline contrast. Aorta * Normally sized aortic root. Pericardium * There is no pericardial effusion present. IVC * The IVC is not well evaluated. Aortic Valve * Aortic valve not well visualized. * Normal aortic valve function. Mitral Valve * Normal mitral valve structure. * Normal mitral valve function. Tricuspid Valve * Tricuspid valve not well visualized. * Normal tricuspid valve function. * Unable to estimate RVSP due to lack of TR jet. Pulmonic Valve * Pulmonic valve not well visualized. * Normal pulmonic valve function. Consult Discharge Plan - Plan Referrals: Merced Mckeon MD [Primary Care Provider] -
[2017-05-21] MEDS: Insulin DETEMIR 100 UNIT/ML X5UNITS SQ SCH (21:23)
[2017-05-22] MEDS: Ipratropium/Albuterol Neb 3 ML IH SCH ×6 (03:25→23:03)
[2017-05-22 04:29] LABS: Hematocrit 47.4 % (35.3-44.9); Hemoglobin 15.9 g/dL (11.5-15.4); Mean Corpuscular HGB Conc 33.5 g/dL (31.6-35.5); Mean Corpuscular Hemoglobin 28.6 pg (28.0-33.3); Mean Corpuscular Volume 85.3 fL (83.0-100.0); Mean Platelet Volume 11.3 fL (9.4-12.4); Platelet Count 147 K/mcL (140-400); Red Blood Count 5.56 M/mcL (3.82-4.97); Red Cell Distribution Width 13.1 % (11.5-14.5)
[2017-05-22 04:47] LABS: Alanine Aminotransferase 60 Units/L (0-55); Albumin 3.7 g/dL (3.5-5.0); Alkaline Phosphatase 62 Units/L (38-126); Aspartate Amino Transferase 40 Units/L (5-34); BUN/Creatinine Ratio 18 (6-26); Bilirubin,Total 1.1 mg/dL (0.2-1.2); Blood Urea Nitrogen 12 mg/dL (7-20); Calcium 9.8 mg/dL (8.6-10.8); Carbon Dioxide 27 mEq/L (19-29); Chloride 102 mEq/L (98-109); Globulin 3.6 g/dL (2.4-3.5); Glucose 199 mg/dL (70-99); Osmolality,Calculated 289 (280-300); Potassium 4.3 mEq/L (3.5-4.5); Sodium 137 mEq/L (136-145); Total Protein 7.3 g/dL (6.0-8.3); eGFR For African Americans > 60 (> 60); eGFR For Non-African Americans > 60 (> 60)
--- NOTE | 2017-05-22 09:39 | Neurology Progress Note ---
Date of Encounter: 05/22/17 Time of Encounter: 08:10 Assessment and Plan (1) CVA (cerebral vascular accident) Current Visit: Yes Status: Acute This patient who has an evidence of multiple embolic infarct predominantly in the right hemisphere so far did not have any active emboli noted carotid shows occlusion of the right internal carotid she has been maintained on antiplatelet therapy with aspirin and Plavix. Echocardiogram is negative for any active emboli she is scheduled for BRIAN today. She may also need monitoring for arrhythmias as height is 4 arrhythmia and if indeed this positive she will need to be anticoagulated. Otherwise he should continue her on antiplatelet therapy along with a statin. She would benefit from short-term rehabilitation. continue to monitor her blood pressure blood sugar and risk reduction as she has multiple risk factors for stroke Qualifiers: CVA mechanism: embolism Precerebral and cerebral artery: middle cerebral artery Laterality of affected vessel: right Subjective Principal diagnosis: CVA Interval history: Clinically patient is a stable did not have any other new symptoms no new focal motor weakness. Today she is ambulating with the help of a physical therapist and a walker. sHe is scheduled for BRIAN today Objective - Constitutional Vitals: Temp Pulse Resp BP Pulse Ox 98.4 F 63 16 119/79 96 05/22/17 07:43 05/22/17 07:43 05/22/17 07:46 05/22/17 07:43 05/22/17 07:46 General appearance: Present: A&O X 3, no acute distress, answers questions appropriately - Neurological Exam Sensorimotor examination: Present: intact Motor examination - left side: 4/5: hip flexors, quadriceps, tibialis Anterior, toe extension (EHL), plantarflexion, 5/5: deltoids, biceps, triceps, staffing specialist Sensation intact: Present: intact Mental Status Examination: Present: awake, alert, oriented to person, oriented to place, oriented to time, follows commands appropriately, answers questions appropriately Cranial nerve examination: Present: no facial asymmetry is present, no dysarthria Results - Laboratory Findings CBC and BMP: 05/22/17 03:42 05/22/17 03:42 Abnormal lab findings: Abnormal lab results RBC 5.56 M/mcL (3.82-4.97) H 05/22/17 03:42 Hgb 15.9 g/dL (11.5-15.4) H 05/22/17 03:42 Hct 47.4 % (35.3-44.9) H 05/22/17 03:42 PT 12.6 Seconds (9.4-12.1) H 05/19/17 15:07 Glucose 199 mg/dL (70-99) H 05/22/17 03:42 POC Glucose 219 (58-89) H 05/22/17 08:07 Hemoglobin A1c 10.0 % (-5.6) H 05/20/17 06:42 AST 40 Units/L (5-34) H 05/22/17 03:42 ALT 60 Units/L (0-55) H 05/22/17 03:42 Globulin 3.6 g/dL (2.4-3.5) H 05/22/17 03:42 Albumin/Globulin Ratio 1.0 (1.1-2.2) L 05/22/17 03:42 Triglycerides 158 mg/dL (< 150) H 05/21/17 04:24 LDL Cholesterol, Calc 126 mg/dL (0-99) H 05/21/17 04:24 VLDL Cholesterol, Calc 32 mg/dL (< 31) H 05/21/17 04:24 HDL Cholesterol 31 mg/dL (40-59) L 05/21/17 04:24 Cholesterol/HDL Ratio 6.1 (0-4.9) H 05/21/17 04:24 Urine Clarity Turbid (Clear) A 05/19/17 14:12 Ur Specific [place] 1.028 (1.010-1.025) H 05/19/17 14:12 Urine Glucose (UA) >=1000 mg/dL (Normal) H 05/19/17 14:12 Urine Blood Large (Negative) H 05/19/17 14:12 Urine Nitrite Positive (Negative) A 05/19/17 14:12 Ur Leukocyte Esterase Large (Negative) H 05/19/17 14:12 Urine Microscopic RBC 15-30 per hpf (0-3) H 05/19/17 14:12 Urine Microscopic WBC TNTC per hpf (0-3) H 05/19/17 14:12 Ur Squamous Epith Cells Many per lpf (None-Few) H 05/19/17 14:12 Urine Bacteria Many per hpf (None-Few) H 05/19/17 14:12 Ur Culture Indicated? YES (NO) A 05/19/17 14:12 Consult Discharge Plan - Plan Referrals: Merced Mckeon MD [Primary Care Provider] -
--- NOTE | 2017-05-22 09:58 | Event Note ---
Date of Encounter: 05/22/17 Time of Encounter: 09:56 - Cardiology Event Note Ms. Pacheco is awaiting BRIAN today. BRIAN scheduled at 1400. Possible Loop recorder after BRIAN. Patient voiced understanding. She denies questions.
[2017-05-22] MEDS ORDERED: *HR* FentaNYL (PF) 100 MCG/2 ML VIAL IVP PRN (13:23)
[2017-05-22] MEDS ORDERED: Lidocaine Viscous Oral Soln 15 ML SOLUTION MM PRN (13:23)
[2017-05-22] MEDS ORDERED: 0.9 % Sodium Chloride 500 ML IVC ONE (13:24)
[2017-05-22] MEDS ORDERED: *HR* Midazolam HCl 2 MG/2 ML VIAL IVP PRN (13:24)
[2017-05-22] MEDS ORDERED: Tetracaine/Benzocaine/Butamben 200MG/SPRAY (100SPY/BOT) MM ONE (13:24)
[2017-05-22] MEDS ORDERED: *HR* Midazolam HCl 5 MG/5 ML VIAL IVP ONE ×3 (13:53→13:54)
--- NOTE | 2017-05-22 17:29 | Internal Med Progress Note ---
Date of Encounter: 05/22/17 Time of Encounter: 10:00 - Assessment and plan (1) CVA (cerebral vascular accident) Current Visit: Yes Status: Acute Assessment and plan: -Patient has some neurological deficits and left lower extremity as she is not able to dorsiflex her foot. -MRI of brain showed multiple areas of acute infarct involving the frontal lobes , parietal lobes, and occipital lobes bilaterally, involving multiple vascular territories. -CTA of the neck showed occluded right internal carotid artery at its origin and throughout its course in the neck with partial reconstitution intracranially likely from collateral retrograde flow from [place]. -Transesophageal echocardiogram showed LVEF 55-60 %, normal filling and emptying of the left atrial appendage, no cardioembolic source identified and no interatrial septal defect -An implantable loop recorder was placed on 05/22/17 by cardiology. -Neurology was consult with recommendations to continue antiplatelet therapy along with a statin with additional recommendations for short-term rehabilitation; social security benefits interviewer following for placement. Qualifiers: CVA mechanism: embolism Precerebral and cerebral artery: middle cerebral artery Laterality of affected vessel: right Qualified Code(s): I63.411 - Cerebral infarction due to embolism of right middle cerebral artery (2) Diabetes Current Visit: Yes Status: Acute Assessment and plan: -Blood glucose is controlled; continue home basal insulin Qualifiers: Diabetes mellitus type: type 2 Diabetes mellitus complication status: without complication Diabetes mellitus [facility] insulin use: with [facility] use Qualified Code(s): E11.9 - Type 2 diabetes mellitus without complications ; Z79.4 - snf (current) use of insulin; Z79.4 - snf (current) use of insulin; Z79.4 - terminal gauger (current) use of insulin; Z79.4 - terminal gauger ( current) use of insulin - Subjective Interval history: She reports of some return of range of motion of left lower extremity. - Constitutional Vitals: Temp Pulse Resp BP Pulse Ox 97.8 F 81 12 144/88 90 05/22/17 13:46 05/22/17 13:46 05/22/17 13:46 05/22/17 13:46 05/22/17 13:46 General appearance: Present: A&O X 3, answers questions appropriately - Respiratory Respiratory exam: Present: CTAB. Absent: accessory muscle use, rales, rhonchi, wheezes - Cardiovascular Cardiovascular exam: Present: RRR, +S1, +S2. Absent: diastolic murmur, gallop, rubs, systolic murmur - Expanded Lower Extremities Exam Lower Leg exam: Present: full ROM (Patient able to move left lower extremity) Foot/Toe exam: Absent: full ROM (Patient able to plantar flex foot but not able to dorsi flex foot) Internal Medicine: Result - Labs CBC & Chem 7: 05/22/17 03:42 05/22/17 03:42 Labs: Short CBC 05/22/17 Range/Units 03:42 WBC 8.4 (4.3-11.1) K/mcL Hgb 15.9 H (11.5-15.4) g/dL Hct 47.4 H (35.3-44.9) % Plt Count 147 (140-400) K/mcL BMP 05/22/17 03:42 Sodium 137 Potassium 4.3 Chloride 102 Carbon Dioxide 27 BUN 12 Creatinine 0.68 Glucose 199 H Calcium 9.8 Liver Function 05/22/17 Range/Units 03:42 Total Bilirubin 1.1 (0.2-1.2) mg/dL AST 40 H (5-34) Units/L ALT 60 H (0-55) Units/L Alkaline Phosphatase 62 (38-126) Units/L Albumin 3.7 (3.5-5.0) g/dL - ABG Interpretation ABG results: PT/INR, D-dimer PT 12.6 Seconds (9.4-12.1) H 05/19/17 15:07 Consult Discharge Plan - Plan Referrals: Merced Mckeon MD [Primary Care Provider] -
[2017-05-22] MEDS: Insulin LISPRO 300 UNITS/3 ML VIAL SQ SCH ×2 (18:47→21:33)
[2017-05-22] MEDS: Cholecalciferol (D-3) 1,000 UNIT TABLET PO SCH (18:48)
[2017-05-22] MEDS: Gabapentin 400 MG CAPSULE PO SCH ×3 (18:48→21:32)
[2017-05-22] MEDS: Aspirin 81 MG TAB.CHEW PO SCH (18:53)
[2017-05-22] MEDS: Insulin DETEMIR 100 UNIT/ML X5UNITS SQ SCH (21:32)
[2017-05-23] MEDS: Ipratropium/Albuterol Neb 3 ML IH SCH ×6 (03:50→23:58)
[2017-05-23 05:40] LABS: Hematocrit 44.4 % (35.3-44.9); Hemoglobin 14.9 g/dL (11.5-15.4); Mean Corpuscular HGB Conc 33.6 g/dL (31.6-35.5); Mean Corpuscular Hemoglobin 29.4 pg (28.0-33.3); Mean Corpuscular Volume 87.6 fL (83.0-100.0); Mean Platelet Volume 11.4 fL (9.4-12.4); Platelet Count 135 K/mcL (140-400); Red Blood Count 5.07 M/mcL (3.82-4.97); Red Cell Distribution Width 13.1 % (11.5-14.5)
[2017-05-23] MEDS: Acetaminophen 325 MG TABLET PO PRN (05:44)
[2017-05-23 05:52] LABS: Alanine Aminotransferase 50 Units/L (0-55); Albumin 3.4 g/dL (3.5-5.0); Alkaline Phosphatase 58 Units/L (38-126); Aspartate Amino Transferase 30 Units/L (5-34); BUN/Creatinine Ratio 16 (6-26); Bilirubin,Total 1.5 mg/dL (0.2-1.2); Blood Urea Nitrogen 11 mg/dL (7-20); Calcium 9.5 mg/dL (8.6-10.8); Carbon Dioxide 29 mEq/L (19-29); Chloride 103 mEq/L (98-109); Globulin 3.3 g/dL (2.4-3.5); Glucose 204 mg/dL (70-99); Osmolality,Calculated 293 (280-300); Sodium 139 mEq/L (136-145); Total Protein 6.7 g/dL (6.0-8.3); eGFR For African Americans > 60 (> 60); eGFR For Non-African Americans > 60 (> 60)
[2017-05-23] MEDS: Cholecalciferol (D-3) 1,000 UNIT TABLET PO SCH (08:46)
[2017-05-23] MEDS: Aspirin 81 MG TAB.CHEW PO SCH (08:46)
[2017-05-23] MEDS: Gabapentin 400 MG CAPSULE PO SCH ×4 (08:46→22:39)
[2017-05-23] MEDS: Insulin LISPRO 300 UNITS/3 ML VIAL SQ SCH ×4 (08:59→22:39)
--- NOTE | 2017-05-23 12:22 | Event Note ---
Date of Encounter: 05/23/17 Time of Encounter: 12:19 - Cardiology Event Note S/P BRIAN and loop insertion yesterday to r/o arrhythmia for cause of CVA. No significant findings on BRIAN and loop inserted without issue. Cardiology signing off. Reconsult PRN. Will coordinate outpt follow-up. ACTIVITY: Moderate activity for the next 7 days. No lifting more than 5 pounds ( gallon of milk) for 1 week. BATHING /SHOWERING: Do not remove the large bandage over the site for 2 days. Do not allow the device to get wet for 7-10 days. You may bathe/shower, but do not use soap and water on the site. When bathing, keep the site dry by covering with Saran wrap or a towel. WOUND CARE: The white steri-strips will start to peel away and come off after 14 days, or your doctor will remove them after [address] into or on top of the incision. Do not use cotton swabs. Do not use any antibiotic ointment or Vitamin E on the site. REMINDERS: Notify security personnel at the airport that you have a device before you go through airport security screening. When at places with security monitors, such as a grocery store, do not linger near these monitors. It is fine to walk past them in a normal manner. Refer to your owners manual for more specific directions. CARRY YOUR IDENTIFICATION CARD WITH YOU AT ALL TIMES Return to work as instructed per physician Resume driving as instructed per physician Keep all scheduled follow up appointments Resume medications as instructed Contact [facility] ( ) if: You develop excessive bleeding from insertion or wound site not controlled by applying pressure You develop a fever greater than 101 degrees Fahrenheit Your incision becomes reddened at or around the site Your incision develops yellowish or greenish drainage or development of white pimple-like bumps You experience excessive pain You experience muscle switching If you experience chest pain, shortness of breath, dizziness, or extreme tiredness, stop the activity and rest. Please notify [facility] office if you experience any of these symptoms and they are not relieved by rest please call 911!
--- NOTE | 2017-05-23 14:21 | Neurology Progress Note ---
Date of Encounter: 05/23/17 Time of Encounter: 14:19 Assessment and Plan (1) CVA (cerebral vascular accident) Current Visit: Yes Status: Acute This patient has unfortunately experienced an embolic shower which is resulted in by hemispheric cerebral infarcts which are identified in the right cerebral hemisphere. Up until this point no specific embolic source was identified. Transthoracic echo and transesophageal echo were unrevealing. She is going to go home with a loop monitor, I do agree with this. One might also consider a hypercoagulable workup however might lead suspicion is that she simply has accelerated atherosclerotic disease likely due to genetic factors as well as lifestyle issues. She has multiple risk factors including obesity, hyperlipidemia, uncontrolled diabetes mellitus, hypertension, cigarette smoking. I did inform her of the importance of smoking cessation however she will not consider quitting even with the knowledge of potential limb loss and at some point in the future. I would simply maintain her current regiment of antiplatelet therapy, statins, and antihypertensives. I agree with transitioning her into a shelter until she is stable enough to return to independent living. I will reevaluate her at your request. Qualifiers: CVA mechanism: embolism Precerebral and cerebral artery: middle cerebral artery Laterality of affected vessel: right Qualified Code(s): I63.411 - Cerebral infarction due to embolism of right middle cerebral artery Subjective Principal diagnosis: CVA Interval history: Chart was reviewed, patient seen and examined, case was discussed with internal medicine. The patient is a 46-year-old woman with a known history of right internal carotid artery occlusion COPD hypertension and diabetes mellitus and hyperlipidemia as well as obesity who was admitted secondary to complaints of left leg weakness and right leg numbness. Ultimately an MRI scan of the brain was completed and revealed multiple acute cerebral infarcts consistent with an embolic phenomenon. She has had a transthoracic echocardiogram as well as transesophageal echocardiogram neither of which revealed an embolic source. She is a one pack a day smoker and apparently has accelerated vascular disease but refuses to consider smoking cessation. Today she is awake and alert sitting up at the side of the bed wishing to go home however still has considerable weakness of the left lower extremity. The plan was to transition her into an extended care facility and then home after she is more stable and less of a fall risk. Objective - Constitutional Vitals: Temp Pulse Resp BP Pulse Ox 97.5 F L 70 16 126/73 96 05/23/17 11:32 10/14/17 11:32 05/23/17 11:32 05/23/17 11:32 05/23/17 11:32 General appearance: Present: A&O X 3, no acute distress, answers questions appropriately - Neurological Exam Sensorimotor examination: Present: intact Motor examination - right side: 5/5: deltoids, biceps, triceps, operations consultant, hip flexors, tibialis Anterior, quadriceps, toe extension (EHL), plantarflexion Motor examination - left side: 4/5: hip flexors, quadriceps, tibialis Anterior, toe extension (EHL), plantarflexion, 5/5: deltoids, biceps, triceps, operations consultant Sensation intact: Present: other. Absent: intact (There is decreased sensation to pinprick in a distal to proximal gradient symmetrically.) Reflex and gait examination: other (Deep tendon reflexes are absent throughout.) Mental Status Examination: Present: awake, alert, oriented to person, oriented to place, oriented to time, follows commands appropriately, answers questions appropriately Cranial nerve examination: Present: no facial asymmetry is present, no dysarthria Results - Laboratory Findings CBC and BMP: 05/23/17 04:17 05/23/17 04:17 Abnormal lab findings: Abnormal lab results RBC 5.07 M/mcL (3.82-4.97) H 05/23/17 04:17 Plt Count 135 K/mcL (140-400) L 05/23/17 04:17 PT 12.6 Seconds (9.4-12.1) H 05/19/17 15:07 Glucose 204 mg/dL (70-99) H 05/23/17 04:17 POC Glucose 262 (58-89) H 05/23/17 11:30 Hemoglobin A1c 10.0 % (-5.6) H 05/20/17 06:42 Total Bilirubin 1.5 mg/dL (0.2-1.2) H 05/23/17 04:17 Albumin 3.4 g/dL (3.5-5.0) L 05/23/17 04:17 Albumin/Globulin Ratio 1.0 (1.1-2.2) L 05/23/17 04:17 Triglycerides 158 mg/dL (< 150) H 05/21/17 04:24 LDL Cholesterol, Calc 126 mg/dL (0-99) H 05/21/17 04:24 VLDL Cholesterol, Calc 32 mg/dL (< 31) H 05/21/17 04:24 HDL Cholesterol 31 mg/dL (40-59) L 05/21/17 04:24 Cholesterol/HDL Ratio 6.1 (0-4.9) H 05/21/17 04:24 Urine Clarity Turbid (Clear) A 05/19/17 14:12 Ur Specific [place] 1.028 (1.010-1.025) H 05/19/17 14:12 Urine Glucose (UA) >=1000 mg/dL (Normal) H 05/19/17 14:12 Urine Blood Large (Negative) H 05/19/17 14:12 Urine Nitrite Positive (Negative) A 05/19/17 14:12 Ur Leukocyte Esterase Large (Negative) H 05/19/17 14:12 Urine Microscopic RBC 15-30 per hpf (0-3) H 05/19/17 14:12 Urine Microscopic WBC TNTC per hpf (0-3) H 05/19/17 14:12 Ur Squamous Epith Cells Many per lpf (None-Few) H 05/19/17 14:12 Urine Bacteria Many per hpf (None-Few) H 05/19/17 14:12 Ur Culture Indicated? YES (NO) A 05/19/17 14:12 Consult Discharge Plan - Plan Referrals: Merced Mckeon MD [Primary Care Provider] -
--- NOTE | 2017-05-23 17:54 | Internal Med Progress Note ---
Date of Encounter: 05/23/17 Time of Encounter: 11:00 - Assessment and plan (1) CVA (cerebral vascular accident) Current Visit: Yes Status: Acute Assessment and plan: -Patient has some neurological deficits and left lower extremity as she is not able to dorsiflex her foot. -MRI of brain showed multiple areas of acute infarct involving the frontal lobes , parietal lobes, and occipital lobes bilaterally, involving multiple vascular territories. -CTA of the neck showed occluded right internal carotid artery at its origin and throughout its course in the neck with partial reconstitution intracranially likely from collateral retrograde flow from [place]. -Transesophageal echocardiogram showed LVEF 55-60 %, normal filling and emptying of the left atrial appendage, no cardioembolic source identified and no interatrial septal defect -An implantable loop recorder was placed on 05/22/17 by cardiology. -Neurology was consult with recommendations to continue antiplatelet therapy along with a statin with additional recommendations for short-term rehabilitation; social work lecturer following for placement. Qualifiers: CVA mechanism: embolism Precerebral and cerebral artery: middle cerebral artery Laterality of affected vessel: right Qualified Code(s): I63.411 - Cerebral infarction due to embolism of right middle cerebral artery (2) Diabetes Current Visit: Yes Status: Acute Assessment and plan: -Blood glucose is controlled; continue home basal insulin Qualifiers: Diabetes mellitus type: type 2 Diabetes mellitus complication status: without complication Diabetes mellitus halfway insulin use: with peat shredder tender use Qualified Code(s): E11.9 - Type 2 diabetes mellitus without complications ; Z79.4 - USP (current) use of insulin; Z79.4 - USP (current) use of insulin; Z79.4 - magento developer (current) use of insulin; Z79.4 - magento developer ( current) use of insulin - Subjective Interval history: She reports of some return of range of motion of left lower extremity. - Constitutional Vitals: Temp Pulse Resp BP Pulse Ox 98.2 F 84 18 136/90 96 05/23/17 15:28 05/23/17 15:28 05/23/17 16:32 05/23/17 15:28 05/23/17 16:32 General appearance: Present: A&O X 3, answers questions appropriately - Respiratory Respiratory exam: Present: CTAB. Absent: accessory muscle use, rales, rhonchi, wheezes - Cardiovascular Cardiovascular exam: Present: RRR, +S1, +S2. Absent: diastolic murmur, gallop, rubs, systolic murmur - Expanded Lower Extremities Exam Lower Leg exam: Absent: full ROM (Patient not able to dorsiflex her foot) Internal Medicine: Result - Labs CBC & Chem 7: 05/23/17 04:17 05/23/17 04:17 Labs: Short CBC 05/23/17 Range/Units 04:17 WBC 6.6 (4.3-11.1) K/mcL Hgb 14.9 (11.5-15.4) g/dL Hct 44.4 (35.3-44.9) % Plt Count 135 L (140-400) K/mcL BMP 05/23/17 04:17 Sodium 139 Potassium 4.0 Chloride 103 Carbon Dioxide 29 BUN 11 Creatinine 0.68 Glucose 204 H Calcium 9.5 Liver Function 05/23/17 Range/Units 04:17 Total Bilirubin 1.5 H (0.2-1.2) mg/dL AST 30 (5-34) Units/L ALT 50 (0-55) Units/L Alkaline Phosphatase 58 (38-126) Units/L Albumin 3.4 L (3.5-5.0) g/dL - ABG Interpretation ABG results: PT/INR, D-dimer PT 12.6 Seconds (9.4-12.1) H 05/19/17 15:07 Consult Discharge Plan - Plan Referrals: Merced Mckeon MD [Primary Care Provider] -
[2017-05-23] MEDS: Insulin DETEMIR 100 UNIT/ML X5UNITS SQ SCH (22:39)
[2017-05-24] MEDS: Ipratropium/Albuterol Neb 3 ML IH SCH ×6 (04:07→23:03)
[2017-05-24 05:28] LABS: Hematocrit 43.7 % (35.3-44.9); Hemoglobin 14.6 g/dL (11.5-15.4); Mean Corpuscular HGB Conc 33.4 g/dL (31.6-35.5); Mean Corpuscular Hemoglobin 29.1 pg (28.0-33.3); Mean Corpuscular Volume 87.1 fL (83.0-100.0); Mean Platelet Volume 11.8 fL (9.4-12.4); Platelet Count 121 K/mcL (140-400); Red Blood Count 5.02 M/mcL (3.82-4.97); Red Cell Distribution Width 13.1 % (11.5-14.5)
[2017-05-24 05:55] LABS: Alanine Aminotransferase 41 Units/L (0-55); Albumin 3.3 g/dL (3.5-5.0); Alkaline Phosphatase 61 Units/L (38-126); Aspartate Amino Transferase 21 Units/L (5-34); BUN/Creatinine Ratio 14 (6-26); Blood Urea Nitrogen 10 mg/dL (7-20); Calcium 9.2 mg/dL (8.6-10.8); Carbon Dioxide 25 mEq/L (19-29); Chloride 104 mEq/L (98-109); Globulin 3.3 g/dL (2.4-3.5); Glucose 304 mg/dL (70-99); Osmolality,Calculated 298 (280-300); Potassium 4.1 mEq/L (3.5-4.5); Sodium 139 mEq/L (136-145); Total Protein 6.6 g/dL (6.0-8.3); eGFR For African Americans > 60 (> 60); eGFR For Non-African Americans > 60 (> 60)
[2017-05-24] MEDS: Aspirin 81 MG TAB.CHEW PO SCH (09:27)
[2017-05-24] MEDS: Gabapentin 400 MG CAPSULE PO SCH ×4 (09:27→21:01)
[2017-05-24] MEDS: Cholecalciferol (D-3) 1,000 UNIT TABLET PO SCH (09:27)
[2017-05-24] MEDS: Insulin LISPRO 300 UNITS/3 ML VIAL SQ SCH ×4 (09:27→21:02)
--- NOTE | 2017-05-24 18:41 | Internal Med Progress Note ---
Date of Encounter: 05/24/17 Time of Encounter: 11:00 - Assessment and plan (1) CVA (cerebral vascular accident) Current Visit: Yes Status: Acute Assessment and plan: -Patient has some neurological deficits and left lower extremity as she is not able to dorsiflex her foot. -MRI of brain showed multiple areas of acute infarct involving the frontal lobes , parietal lobes, and occipital lobes bilaterally, involving multiple vascular territories. -CTA of the neck showed occluded right internal carotid artery at its origin and throughout its course in the neck with partial reconstitution intracranially likely from collateral retrograde flow from [place]. -Transesophageal echocardiogram showed LVEF 55-60 %, normal filling and emptying of the left atrial appendage, no cardioembolic source identified and no interatrial septal defect -An implantable loop recorder was placed on 05/22/17 by cardiology. -Neurology was consult with recommendations to continue antiplatelet therapy along with a statin with additional recommendations for short-term rehabilitation; social media developer following for placement. Qualifiers: CVA mechanism: embolism Precerebral and cerebral artery: middle cerebral artery Laterality of affected vessel: right Qualified Code(s): I63.411 - Cerebral infarction due to embolism of right middle cerebral artery (2) Diabetes Current Visit: Yes Status: Acute Assessment and plan: -Blood glucose is controlled; continue home basal insulin Qualifiers: Diabetes mellitus type: type 2 Diabetes mellitus complication status: without complication Diabetes mellitus detention insulin use: with detention use Qualified Code(s): E11.9 - Type 2 diabetes mellitus without complications ; Z79.4 - assisted (current) use of insulin; Z79.4 - assisted (current) use of insulin; Z79.4 - long term care administrator (current) use of insulin; Z79.4 - long term care administrator ( current) use of insulin (3) DVT prophylaxis Current Visit: Yes Status: Acute Assessment and plan: Subcutaneous heparin - Subjective Interval history: No acute events overnight. - Constitutional Vitals: Temp Pulse Resp BP Pulse Ox 97.8 F 78 18 123/57 92 05/24/17 15:52 05/24/17 15:52 05/24/17 16:07 05/24/17 15:52 05/24/17 16:07 General appearance: Present: A&O X 3, answers questions appropriately - Respiratory Respiratory exam: Present: CTAB. Absent: accessory muscle use, rales, rhonchi, wheezes - Cardiovascular Cardiovascular exam: Present: RRR, +S1, +S2. Absent: diastolic murmur, gallop, rubs, systolic murmur Internal Medicine: Result - Labs CBC & Chem 7: 05/24/17 03:30 05/24/17 03:30 Labs: Short CBC 05/24/17 Range/Units 03:30 WBC 6.1 (4.3-11.1) K/mcL Hgb 14.6 (11.5-15.4) g/dL Hct 43.7 (35.3-44.9) % Plt Count 121 L (140-400) K/mcL BMP 05/24/17 03:30 Sodium 139 Potassium 4.1 Chloride 104 Carbon Dioxide 25 BUN 10 Creatinine 0.70 Glucose 304 H Calcium 9.2 Liver Function 05/24/17 Range/Units 03:30 Total Bilirubin 1.0 (0.2-1.2) mg/dL AST 21 (5-34) Units/L ALT 41 (0-55) Units/L Alkaline Phosphatase 61 (38-126) Units/L Albumin 3.3 L (3.5-5.0) g/dL - ABG Interpretation ABG results: PT/INR, D-dimer PT 12.6 Seconds (9.4-12.1) H 05/19/17 15:07 - VTE Documentation of Mechanical Device: Venous foot pump, device Consult Discharge Plan - Plan Referrals: Merced Mckeon MD [Primary Care Provider] -
[2017-05-24] MEDS: Insulin DETEMIR 100 UNIT/ML X5UNITS SQ SCH (21:01)
[2017-05-25] MEDS: Ipratropium/Albuterol Neb 3 ML IH SCH ×4 (03:31→16:00)
[2017-05-25 04:29] LABS: Hematocrit 44.1 % (35.3-44.9); Hemoglobin 15.2 g/dL (11.5-15.4); Mean Corpuscular HGB Conc 34.5 g/dL (31.6-35.5); Mean Corpuscular Hemoglobin 29.8 pg (28.0-33.3); Mean Corpuscular Volume 86.5 fL (83.0-100.0); Mean Platelet Volume 10.8 fL (9.4-12.4); Platelet Count 128 K/mcL (140-400)
[2017-05-25 04:48] LABS: Alanine Aminotransferase 36 Units/L (0-55); Albumin 3.3 g/dL (3.5-5.0); Albumin/Globulin Ratio 0.9 (1.1-2.2); Alkaline Phosphatase 61 Units/L (38-126); Aspartate Amino Transferase 20 Units/L (5-34); BUN/Creatinine Ratio 17 (6-26); Bilirubin,Total 0.9 mg/dL (0.2-1.2); Blood Urea Nitrogen 11 mg/dL (7-20); Calcium 9.6 mg/dL (8.6-10.8); Carbon Dioxide 27 mEq/L (19-29); Chloride 104 mEq/L (98-109); Globulin 3.6 g/dL (2.4-3.5); Glucose 210 mg/dL (70-99); Osmolality,Calculated 290 (280-300); Potassium 4.1 mEq/L (3.5-4.5); Sodium 137 mEq/L (136-145); Total Protein 6.9 g/dL (6.0-8.3); eGFR For African Americans > 60 (> 60); eGFR For Non-African Americans > 60 (> 60)
[2017-05-25] MEDS ORDERED: *HR* Heparin 5,000 UNIT/ML VIAL SQ SCH (06:00)
[2017-05-25] MEDS: Gabapentin 400 MG CAPSULE PO SCH ×3 (09:18→18:18)
[2017-05-25] MEDS: Cholecalciferol (D-3) 1,000 UNIT TABLET PO SCH (09:18)
[2017-05-25] MEDS: Insulin LISPRO 300 UNITS/3 ML VIAL SQ SCH ×3 (09:18→18:18)
[2017-05-25] MEDS: Aspirin 81 MG TAB.CHEW PO SCH (09:18)
[2017-05-25 11:37] VITALS: BP 146/90
--- NOTE | 2017-05-25 15:12 | Discharge Summary ---
Date of Encounter: 05/25/17 Time of Encounter: 11:00 - Discharge Diagnosis (1) CVA (cerebral vascular accident) Priority: Primary Status: Acute Qualifiers: CVA mechanism: occlusion Precerebral and cerebral artery: middle cerebral artery Laterality of affected vessel: right Qualified Code(s): I63.511 - Cerebral infarction due to unspecified occlusion or stenosis of right middle cerebral artery (2) Diabetes Priority: Secondary Status: Acute Qualifiers: Diabetes mellitus type: type 2 Diabetes mellitus complication status: without complication Diabetes mellitus exterminator helper insulin use: with longterm use Qualified Code(s): E11.9 - Type 2 diabetes mellitus without complications ; Z79.4 - shelter (current) use of insulin; Z79.4 - exterminator helper (current) use of insulin; Z79.4 - shelter (current) use of insulin; Z79.4 - exterminator helper ( current) use of insulin - Discharge Medications Prescriptions: Aspirin 81 mg PO DAILY #30 tab.chew Atorvastatin [Lipitor] 80 mg PO HS #30 tablet Clopidogrel [Plavix] 75 mg PO DAILY #30 tablet Lisinopril-HCTZ 10-12.5 [Prinzide 10-12.5] 1 each PO DAILY #30 tablet Home Medications: Metformin HCl [Glucophage] 1,000 mg PO BID 09/26/15 [History] Cholecalciferol (Vitamin D3) [Vitamin D3] 2,000 unit PO DAILY 05/19/17 [History] Gabapentin [Neurontin] 400 mg PO QID 05/19/17 [History] Insulin Glargine,Hum.rec.anlog [Lantus Solostar] 35 unit SQ QPM 05/19/17 [ History] Aspirin 81 mg PO DAILY #30 tab.chew 05/25/17 [Rx] Atorvastatin [Lipitor] 80 mg PO HS #30 tablet 05/25/17 [Rx] Clopidogrel [Plavix] 75 mg PO DAILY #30 tablet 05/25/17 [Rx] Lisinopril-HCTZ 10-12.5 [Prinzide 10-12.5] 1 each PO DAILY #30 tablet 05/25/17 [ Rx] Allergies/Adverse Reactions: 3 Allergy/AdvReac Type Severity Reaction Status Date / Time Penicillins [PCN] Allergy Swelling Verified 09/04/16 20:04 of Lip/Tongue/Throat Date of admission: 05/20/17 14:16 Primary care physician: Merced Mckeon MD Consults: 05/20/17 17:06 Consult to Cardiology [CONS] Routine Comment: Consulting Provider: Judy Spring Reason for Consult: embolic CVA Call Completed: Yes - Patient Status Disposition: Transfer Intermediate Care Fac Condition: Fair - Discharge Instructions Follow Up With: Merced Mckeon MD [Primary Care Provider] - Hospital course: Patient is a 46 year old female with past medical history of diabetes, hypertension, COPD, and depression who presented to the ER on 05/20/17 with left leg numbness and weakness. Patient stated that her symptoms started 3 days prior to admission. She also reported of numbness and weakness in her left leg. She went to an outside facility, and was told that she did not have a stroke based on a CT scan and was later sent home. Her symptoms did not improve and now she is unable to move her left lower extremity. In the ER, MRI of brain showed multiple areas of acute infarct involving the frontal lobes, parietal lobes and bicipital lobes bilaterally, involving multiple vascular territories. There is also a mild enhancement in the posterior right frontal lesion, which is suggestive of subacute areas of infarct. She was admitted to medical floor for CVA management and treatment. During patients hospital stay both transthoracic echocardiogram as well as transesophageal echocardiogram were done, neither of which revealed an embolic source. Neurology was consulted with recommendations to control risk factors including smoking cessation and to continue antiplatelet therapy, statin and hypertensive medications. She will be discharged to [facility] for strength and conditioning/rehabilitation. - Time Spent with Patient Total time spent providing and/or coordinating discharge services: Less than 30 minutes - Constitutional Vitals: Temp Pulse Resp BP Pulse Ox 97.9 F 59 16 146/90 99 05/25/17 11:35 05/25/17 11:35 05/25/17 11:35 05/25/17 11:35 05/25/17 11:35 General appearance: Present: A&O X 3, answers questions appropriately - VTE Documentation of Mechanical Device: Venous foot pump, device
--- NOTE | 2017-05-25 15:13 | Physician Discharge Referral ---
ExtendedCare Referral Info Transfer To: [facility] - Diagnosis (1) CVA (cerebral vascular accident) Status: Acute (2) Diabetes Status: Acute - Transfer Medications Prescriptions: Aspirin 81 mg PO DAILY #30 tab.chew Atorvastatin [Lipitor] 80 mg PO HS #30 tablet Clopidogrel [Plavix] 75 mg PO DAILY #30 tablet Lisinopril-HCTZ 10-12.5 [Prinzide 10-12.5] 1 each PO DAILY #30 tablet Home Medications: Metformin HCl [Glucophage] 1,000 mg PO BID 09/26/15 [History] Cholecalciferol (Vitamin D3) [Vitamin D3] 2,000 unit PO DAILY 05/19/17 [History] Gabapentin [Neurontin] 400 mg PO QID 05/19/17 [History] Insulin Glargine,Hum.rec.anlog [Lantus Solostar] 35 unit SQ QPM 05/19/17 [ History] Aspirin 81 mg PO DAILY #30 tab.chew 05/25/17 [Rx] Atorvastatin [Lipitor] 80 mg PO HS #30 tablet 05/25/17 [Rx] Clopidogrel [Plavix] 75 mg PO DAILY #30 tablet 05/25/17 [Rx] Lisinopril-HCTZ 10-12.5 [Prinzide 10-12.5] 1 each PO DAILY #30 tablet 05/25/17 [ Rx] Allergies/Adverse Reactions: 3 Allergy/AdvReac Type Severity Reaction Status Date / Time Penicillins [PCN] Allergy Swelling Verified 09/04/16 20:04 of Lip/Tongue/Throat - Respiratory Orders Smoking Cessation: Smoking cessation has been advised. For more information, call the [place] Tobacco Quit Line at 5-174-GCJY-NOW. CERTIFICATION: I certify that the transfer of the above named patient to an Extended Care Facility is necessary for the continuing treatment of the diagnosis listed. The above information is true and accurate reflection of patient's current condition. Confidential - Redisclosure prohibited without a patient's written consent.
--- NOTE | 2017-05-25 17:16 | Vascular/Endovasc Consult Note ---
Date of Encounter: 05/25/17 Time of Encounter: 17:00 Assessment and Plan (1) Occlusion of right internal carotid artery Current Visit: Yes Status: Acute Occlusion of the right internal carotid over its entire extracranial length rules out surgical intervention. Embolic-appearing diffuse acute strokes in both hemispheres would be a highly unusual presentation for acute occlusion of the right internal carotid artery. Treatment with aspirin and Plavix is reasonable in this setting. No surgical options are available for carotid artery reconstruction. Annual carotid duplex evaluation is recommended - History of Present Illness Consult date: 05/25/17 Consult reason: Right internal carotid artery occlusion Chief complaint: Acute stroke History of present illness: Ms. Pacheco is a 46 year old female With profound morbid obesity. She presented 5 days ago to the emergency room with acute stroke. MRI of the brain demonstrated bilateral frontal lobe strokes and small bilateral parietal lobe infarcts. A follow-up CTA of the neck demonstrated an occluded right internal carotid artery with reconstitution intracranially. A subsequent neurology consultation and embolic workup was negative. The patient was started on aspirin and Plavix. She initially had left lower extremity findings of weakness and poor balance. This has improved over the last several days. Vascular surgery is now consult at prior to discharge for any possible future surgical planning Past Med Surg Social Fam HX - Past Medical History Medical history: COPD, diabetes, hyperlipidemia, hypertension Psychiatric history: depression - Past Surgical History Surgical History: cholecystectomy, other - Social History Smoking Status: Former smoker Packs per day: 1.0 Smokeless Tobacco Status: No Alcohol use: none Drug use: none Medications and Allergies Metformin HCl [Glucophage] 1,000 mg PO BID 09/26/15 [History] Cholecalciferol (Vitamin D3) [Vitamin D3] 2,000 unit PO DAILY 05/19/17 [History] Gabapentin [Neurontin] 400 mg PO QID 05/19/17 [History] Insulin Glargine,Hum.rec.anlog [Lantus Solostar] 35 unit SQ QPM 05/19/17 [ History] Aspirin 81 mg PO DAILY #30 tab.chew 05/25/17 [Rx] Atorvastatin [Lipitor] 80 mg PO HS #30 tablet 05/25/17 [Rx] Clopidogrel [Plavix] 75 mg PO DAILY #30 tablet 05/25/17 [Rx] Lisinopril-HCTZ 10-12.5 [Prinzide 10-12.5] 1 each PO DAILY #30 tablet 05/25/17 [ Rx] 3 Allergy/AdvReac Type Severity Reaction Status Date / Time Penicillins [PCN] Allergy Swelling Verified 09/04/16 20:04 of Lip/Tongue/Throat All Systems Review: A 10-system review of systems was performed and is negative for pertinent findings except as documented above in the HPI. Exam General: Present: Conversant, No Apparent Distress, Well developed, Well nourished HEENT: Present: Normocephaly, Trachea midline, Pupils equal Neck: Present: Other (No carotid bruits. I can detect no cranial nerve abnormalities) Cardiac: Present: Reg Rate and Rhythm, Normal S1 and S2, No Murmur Lungs: Present: Normal Breath Sounds, No Wheeze, Rales, Rhonchi Neuro: Present: Alert and responsive, Other (Residual weakness of the left lower extremity is noted she also appears to have a foot drop on the left) Abdomen: Present: Soft, Non-tender Vascular: Present: Other (No cervical bruits. Common carotid pulses are normal) Skin: Present: No rashes noted on visualized skin Musculoskeletal: Present: No Chest Wall Tenderness Consult Discharge Plan - Plan Referrals: Merced Mckeon MD [Primary Care Provider] - Prescriptions: Aspirin 81 mg PO DAILY #30 tab.chew Atorvastatin [Lipitor] 80 mg PO HS #30 tablet Clopidogrel [Plavix] 75 mg PO DAILY #30 tablet Lisinopril-HCTZ 10-12.5 [Prinzide 10-12.5] 1 each PO DAILY #30 tablet
== END 2017-05-25 19:20 | DRG 45 ==
LOC: EMEROO 13:50 → 3BNU 13:50 → SUATTDRO 05-20 14:16
PROVIDERS: ADMIT Nurse Practitioner Family; ATTEND Hospitalist